=== PATIENT | female | born 1960 | race Caucasian/White ===

== ENCOUNTER 2020-10-26 14:01 | Outpatient (CLI) | payer OTHER, SELFPAY | END 2020-10-26 14:02 | disposition home or self-care (01) | LOC: ANHCOVIDVC 14:01 | PROVIDERS: PCP Family Medicine | DX: Z23 Encounter for immunization (principal) | CPT/HCPCS: 0001A; 91300 ==

== ENCOUNTER 2020-11-16 14:02 | Outpatient (CLI) | payer OTHER, SELFPAY | END 2020-11-16 14:03 | disposition home or self-care (01) | LOC: ANHCOVIDVC 14:02 | PROVIDERS: PCP Family Medicine | DX: Z23 Encounter for immunization (principal) | CPT/HCPCS: 0002A; 91300 ==

== ENCOUNTER 2021-03-10 07:31 | Outpatient (CLI) | payer OTHER, SELFPAY ==
--- NOTE | ~2021-03-10 | MM_ITS ---
EXAMINATION: MM screening liz BI w roya HISTORY: Screening mammogram TECHNIQUE: Craniocaudal and mediolateral oblique 3-D tomosynthesis images were obtained and synthetic 2-D images were generated. CAD analysis was submitted and interpreted. COMPARISON: 07/27/2019, 02/09/2013 bilateral digital screening mammogram examinations BREAST PARENCHYMAL COMPOSITION: There are scattered areas of fibroglandular density. FINDINGS: Scattered bilateral benign calcifications. There is no evidence of suspicious mass, calcifi cation, or architectural distortion to suggest malignancy in either breast. There has been no suspici ous interval change. IMPRESSION: 1. No mammographic evidence of malignancy. 2. Recommend routine screening mammography in one year. BI-RADS Category 1: Negative Reviewed, dictated and finalized at location A.
== END 2021-03-10 07:32 | disposition home or self-care (01) ==
PROVIDERS: PCP Family Medicine; Visit Provider Physician Assistant
DX: Z12.31 Encounter for screening mammogram for malignant neoplasm of breast (principal)
CPT/HCPCS: 77063; 77067

== ENCOUNTER 2022-11-12 13:48 | Emergency (ER) | payer OTHER, SELFPAY ==
[2022-11-12 14:23] VITALS: BP 122/67; PULSE 71; RESP 20; TEMP 35.8; O2SAT 99
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
== END 2022-11-12 15:20 | disposition home or self-care (01) ==
PROVIDERS: Emergency Provider Nurse Practitioner Family; PCP Physician Assistant
DX: M54.50 Low back pain, unspecified (principal); I10 Essential (primary) hypertension; E78.00 Pure hypercholesterolemia, unspecified; M19.90 Unspecified osteoarthritis, unspecified site; Z96.643 Presence of artificial hip joint, bilateral
CPT/HCPCS: 99212; G0463

== ENCOUNTER 2022-11-12 15:37 | Emergency (ER) | payer OTHER, SELFPAY ==
--- NOTE | ~2022-11-12 | US_ITS ---
EXAMINATION: US venous doppler [facility] DATE: 11/12/2022 16:22 INDICATION: Left lower limb pain TECHNIQUE: Elder scale images without and with compression and Doppler images of the left lower extrem ity veins were obtained. COMPARISON: None FINDINGS: The left common femoral vein, profunda femoral vein, femoral vein, popliteal vein, peroneal trunk, posterior tibial veins, and greater saphenous vein are patent. IMPRESSION: 1. Patent left lower extremity veins. No evidence of deep venous thrombosis. Reviewed, dictated and finalized at location F.
[2022-11-12 15:42] VITALS: BP 141/86; PULSE 81; RESP 16; TEMP 36.8; O2SAT 98
[2022-11-12 16:02] LABS: Basophils Absolute Auto 0.1 K/mm3 (0.0-0.1); Basophils Percent Auto 0.9 % (0.2-1.2); Eosinophils Absolute Auto 0.2 K/mm3 (0-0.3); Eosinophils Percent Auto 2.8 % (0-4.4); Hematocrit 38.8 % (37.0-47.0); Hemoglobin 13.2 g/dL (12.0-15.0); Immature Granulocyte Absolute 0.01 K/mm3 (0.00-0.031); Immature Granulocyte Percent A 0.2 % (0-0.5); Lymphocytes Absolute Auto 2.05 K/mm3 (0.9-3.2); Lymphocytes Percent Auto 32.2 % (18.3-44.2); Mean Corpuscular Hemoglobin 29.7 pg (26-34); Mean Corpuscular Volume 87.4 fl (80-100); Mean Platelet Volume 10.2 fl (7.4-10.4); Monocytes Absolute Auto 0.4 K/mm3 (0.1-0.6); Monocytes Percent Auto 6.3 % (2.6-8.5); Neutrophils Absolute Auto 3.7 K/mm3 (1.3-6.7); Neutrophils Percent Auto 57.6 % (45.5-73.1); Platelet Count Result 304 k/mm3 (150-375); Red Blood Count 4.44 M/mm3 (4.2-5.4); Red Cell Distribution Width 12.4 % (11.5-14.5); White Blood Count 6.4 K/mm3 (4.5-10.0)
[2022-11-12 16:13] LABS: Anion Gap 7 mmol/L (8-16); Blood Urea Nitrogen 16 mg/dL (7-17); Calcium 9.1 mg/dL (8.4-10.2); Carbon Dioxide 29 mmol/L (22-30); Chloride 102 mmol/L (98-107); Estimated CRCL calculation 110 ml/min; Estimated Glomerular Filt Rate > 60; Glucose 106 mg/dL (65-110); Potassium 3.9 mmol/L (3.4-5.0); Sodium 138 mmol/L (137-145)
[2022-11-12 16:18] LABS: Prothrombin Time 12.8 Seconds (11.1-14.7)
[2022-11-12 16:19] LABS: Partial Thromboplastin Time 25.1 SECONDS (22.3-36.8)
[2022-11-12 21:18] VITALS: BP 151/82; PULSE 67; RESP 18; O2SAT 99
[2022-11-12 21:31] VITALS: BP 115/88; O2SAT 100
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
== END 2022-11-12 22:30 | disposition home or self-care (01) ==
PROVIDERS: Emergency Medicine; Emergency Provider Physician Assistant; PCP Physician Assistant
DX: M54.42 Lumbago with sciatica, left side (principal); I10 Essential (primary) hypertension; G89.21 Chronic pain due to trauma; Z96.642 Presence of left artificial hip joint; M79.605 Pain in left leg
CPT/HCPCS: 36415; 80048; 85025; 85610; 85730; 93971; 99284

== ENCOUNTER 2023-02-13 14:04 | Emergency (ER) | payer OTHER, SELFPAY ==
--- NOTE | 2023-02-13 14:12 | ED.URI ---
HPI - URI/Sore Throat General Chief Complaint: Upper Respiratory Infection Stated Complaint: + covid home test Time Seen by Provider: 02/13/23 14:12 Source: patient Mode of arrival: ambulatory Limitations: no limitations History of Present Illness HPI Narrative: 62-year-old female with history of high blood pressure, high cholesterol presents today with complaint of fatigue, headache, nasal congestion, body aches for 3 days. Patient reports that she did a home COVID test that was positive. Would like the prescription for Paxil open. Denies chest pain and shortness of breath. Taking Tylenol at home to treat her pain. All systems reviewed and negative except as noted above. Related Data Home Medications Medication Instructions Recorded Confirmed atorvastatin 20 mg tablet 20 mg PO DAILY 11/12/22 02/13/23 diltiazem HCl 240 mg capsule,24 240 mg PO DAILY 02/13/23 02/13/23 hr,extended release (Tiadylt ER) losartan 25 mg tablet 25 mg PO DAILY 02/13/23 02/13/23 meloxicam 15 mg tablet 15 mg PO DAILY 02/13/23 02/13/23 paroxetine HCl 10 mg tablet 10 mg PO DAILY 02/13/23 02/13/23 Allergies Allergy/AdvReac Type Severity Reaction Status Date / Time Sulfa (Sulfonamide AdvReac Severe SWELLING Verified 02/13/23 14:23 Antibiotics) tolmetin AdvReac Severe swelling Verified 02/13/23 14:23 mouth adhesive tape AdvReac Intermediate BLISTERS Verified 02/13/23 14:23 Penicillins AdvReac Intermediate THRUSH Verified 02/13/23 14:23 Review of Systems Review of Systems: CONSTITUTIONAL: Denies fever, chills, or sweats. Reports fatigue. EYES: Denies visual changes, redness, or discharge. ENT: Denies rhinorrhea, congestion, sore throat, or otalgia. CARDIOVASCULAR: Denies chest pain, palpitations, or edema. RESPIRATORY: Denies cough or dyspnea. GASTROINTESTINAL: Denies abdominal pain, nausea, vomiting, or diarrhea. GENITOURINARY: Denies dysuria or hematuria. SKIN: Denies rash or itching. MUSCULOSKELETAL: Denies back pain, joint pain . Reports myalgia. NEUROLOGIC: reports headache. Denies numbness, or weakness. PSYCHIATRIC: Denies anxiety or depression. All other systems reviewed are negative, except as documented in HPI. PMF Past Medical History Medical History Hypertension Surgical History Surgical History Presence of left artificial hip joint (05/30/17) Family History Family History Father Hypertension Family history of chronic obstructive pulmonary disease Family history of diabetes mellitus in first degree relative Mother Hypertension Comments At time of signature, agree with nursing past medical, surgical, social and family history. There is no relevant family history pertinent to the presenting complaint. Exam Narrative: GENERAL: This is a well-nourished, well-developed patient. Patient ill-appearing but in no distress. HEAD: normocephalic, atraumatic. EYES: PERRL. Sclera clear/white. Vision is grossly intact. EARS: External ears normal, auditory canals clear and without drainage, TMs normal without perforation. Hearing grossly intact. NOSE: External nose normal with no obvious nasal discharge, nares without redness, no rhinorrhea. THROAT: Mucous membranes moist, posterior pharynx clear. NECK: Neck supple, non-tender without lymphadenopathy, masses or thyromegaly. CARDIOVASCULAR: Regular rate and rhythm without murmurs, gallops, or rubs. RESPIRATORY: Clear to auscultation. Breath sounds equal bilaterally. No wheezes, rales, or rhonchi. SKIN: warm, Dry, intact with no suspicious lesions or rash, good texture and turgor. NEURO: awake, alert, and oriented to person, place and time. There were no obvious focal neurologic abnormalities. EXTREMITIES: No joint tenderness, effusion, or edema noted. Course Course Le
[2023-02-13 14:14] VITALS: BP 147/81; PULSE 97; RESP 18; TEMP 36.5; O2SAT 97
== END 2023-02-13 14:39 | disposition home or self-care (01) ==
PROVIDERS: Emergency Provider Nurse Practitioner Family; PCP Physician Assistant
DX: U07.1 COVID-19 (principal); I10 Essential (primary) hypertension
CPT/HCPCS: 99213; G0463

== ENCOUNTER 2023-10-23 11:52 | Emergency (ER) | payer OTHER, SELFPAY ==
[2023-10-23 12:15] VITALS: BP 146/84; PULSE 84; RESP 20; TEMP 36.6; O2SAT 100
--- NOTE | 2023-10-23 12:34 | ED.URI ---
HPI - URI/Sore Throat General Chief Complaint: Upper Respiratory Infection Stated Complaint: cough,congestion Source: patient, RN notes reviewed and old records reviewed Mode of arrival: ambulatory Limitations: no limitations History of Present Illness HPI Narrative: 63 year old female presents to [facility] with complaint of sore throat, dry cough, chest tightness, eye irritation, sinus pressure and hoarseness for 12 days. Patient endorses that patient returned from a cruise 5 days ago and that her symptoms became acutely worse over the past 3 days. Versus treating home with cough drops, hot tea, spray, that is from without relief. Patient denies fever or any GI complaints. Patient currently endorsing pain in head and throat 01/25. Patient denies pertinent past medical history, chest pain, shortness of breath,denies tobacco use. patient says the history of allergy to sulfa, tolmetin, adhesive tape, and penicillin. Related Data Home Medications Medication Instructions Recorded Confirmed atorvastatin 20 mg tablet 20 mg PO DAILY 11/12/22 10/23/23 diltiazem HCl 240 mg capsule,24 240 mg PO DAILY 02/13/23 10/23/23 hr,extended release (Tiadylt ER) losartan 25 mg tablet 25 mg PO DAILY 02/13/23 10/23/23 meloxicam 15 mg tablet 15 mg PO DAILY 02/13/23 10/23/23 Allergies Allergy/AdvReac Type Severity Reaction Status Date / Time Sulfa (Sulfonamide AdvReac Severe SWELLING Verified 10/23/23 12:20 Antibiotics) tolmetin AdvReac Severe swelling Verified 10/23/23 12:20 mouth adhesive tape AdvReac Intermediate BLISTERS Verified 10/23/23 12:20 Penicillins AdvReac Intermediate THRUSH Verified 10/23/23 12:20 Review of Systems Review of Systems: All systems reviewed & are unremarkable except as noted in HPI and below Constitutional: Constitutional: Reports difficulty sleeping, Reports fatigue, Denies fever(s) and Reports headache(s) Eyes: Eyes: Reports as per HPI, Denies change in vision and Reports irritation ( bilateral pressure) ENT: Reports system reviewed and no additional complaints, except as documented, Reports as per HPI, Denies dizziness, Denies ear discharge, Reports otalgia ( bilateral), Reports headache(s), Reports hoarseness, Reports sinus pressure and Reports sore throat Cardiovascular: Cardiovascular: Reports no additional cardiovascular complaints, Denies chest pain and Denies dyspnea Respiratory: Respiratory: Reports no additional respiratory complaints, Reports cough ( Dry), Reports pain with cough ( substernal chest tightness. Denies pain or radiation) and Denies dyspnea Gastrointestinal: Gastrointestinal: Denies change in stool character Musculoskeletal: Musculoskeletal: Reports no additional musculoskeletal complaints Neurologic: Reports system reviewed and no additional complaints, except as documented Psychiatric: Psychiatric: Reports no additional psychiatric complaints PMFSH Past Medical History Medical History Hypertension Surgical History Surgical History Presence of left artificial hip joint (05/30/17) Family History Family History Father Hypertension Family history of chronic obstructive pulmonary disease Family history of diabetes mellitus in first degree relative Mother Hypertension Comments At the time of my signature, I reviewed and agree with the nursing past medical, surgical, social, and family history. There is no relevant family history pertinent to the patient complaint. Exam Const: General: cooperative, no acute distress, alert, ill appearing, tired appearing, uncomfortable and well nourished; No in distress Nutritional Appearance: well nourished Orientation/consciousness: patient oriented x3 Limitations: no limitations HENMT: Head: normal to inspection Ears: external ears no
== END 2023-10-23 13:04 | disposition home or self-care (01) ==
PROVIDERS: Emergency Provider Nurse Practitioner Family
DX: J06.9 Acute upper respiratory infection, unspecified (principal); J40 Bronchitis, not specified as acute or chronic; J32.9 Chronic sinusitis, unspecified; Z20.822 Contact with and (suspected) exposure to COVID-19; I10 Essential (primary) hypertension
CPT/HCPCS: 87081; 87426; 87804; 87880; 99213; G0463

== ENCOUNTER 2023-10-31 11:05 | Outpatient (CLI) | payer OTHER, SELFPAY ==
--- NOTE | ~2023-10-31 | XR_ITS ---
Right Knee Technique: AP, lateral, and sunrise views were obtained. Clinical History: Pain Findings: No fracture or dislocation is seen. Osseous alignment is anatomic. There is moderate patell ar spurring. There is mild spurring at the intercondylar notch and joint lines.. Soft tissues are unr emarkable. No joint effusion is seen. Impression: Tricompartmental degenerative spurring, as above. Reviewed, dictated and finalized at location M. Impression: Tricompartmental degenerative spurring, as above.
== END 2023-10-31 11:06 | disposition home or self-care (01) ==
PROVIDERS: Visit Provider Orthopaedic Surgery
DX: M25.761 Osteophyte, right knee (principal)
CPT/HCPCS: 73564

== ENCOUNTER 2024-02-06 10:20 | Outpatient (CLI) | payer OTHER, SELFPAY ==
--- NOTE | ~2024-02-06 | MR_ITS ---
EXAMINATION: MR knee RT wo con DATE: 02/06/2024 11:13 INDICATION: Internal derangement of the right knee TECHNIQUE: Magnetic resonance imaging (MRI) of the right knee was performed without intravenous contr ast. Sequences included coronal PD-weighted FSE, coronal PD-weighted FS FSE, sagittal T2-weighted FS E, sagittal PD-weighted FS FSE and axial PD weighted fat saturated FSE. COMPARISON: None. FINDINGS: Medial compartment: Medial meniscus is normal. Mild partial-thickness cartilage loss with smooth chondral surface along t he posterior margin of the medial tibial plateau. Articular cartilage along the weightbearing medial femoral condyle appears normal. Small marginal osteophytes are present. Lateral compartment: Complex tear of the anterior horn of the lateral meniscus. There is deep chondral ulceration with mil d underlying subarticular edema-like signal change at the central to lateral aspect of the lateral ti bial plateau with additional partial-thickness chondral fissuring at the posterior aspect of the late ral tibial plateau. Additional deep chondral ulceration along the anterior to central weightbearing l ateral femoral condyle. At the medial half of the junction of the anterior to central weightbearing l ateral femoral condyle there is a small region of mildly depressed cortex with irregular cortical con tour and underlying decreased signal in the immediately subarticular bone with some surrounding edema -like signal change. Patellofemoral compartment: Extensive deep chondral ulceration with suggestion of cortical remodeling at the lateral patellar fac et and juxtaposed lateral trochlea. Less severe partial thickness cartilage loss with and partial-thi ckness fissuring at the medial patellar facet and medial trochlea. Tiny central subchondral osteophyt e at the central aspect of the lateral trochlea. Ligaments and tendons: Anterior and posterior cruciate ligaments are normal. The medial collateral ligament and fibular mylene ateral ligament complex are normal. The extensor mechanism is normal. The visualized medial and later al hamstring tendons as well as the iliotibial band are normal. Fluid: Moderate-sized right knee joint effusion with mild synovitis at the suprapatellar pouch and along the posterior margin of Hoffa's fat pad. A couple loose loose osteochondral bodies in the posterior rece ss along the lateral margin of the posterior weightbearing lateral femoral condyle, the larger measur ing 12 x 8 x 6 mm and the smaller measuring 8 x 7 x 5 mm. Osseous/other: There is mild posterior subluxation of the lateral tibial plateau relative to the lateral femoral con dyle. Aside from the small region of depressed cortex along the lateral femoral condyle there are no fractures. No pathologic marrow replacing process. IMPRESSION: 1. Complex tear of the anterior horn of the lateral meniscus. 2. 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 3. Both of mild edema-like signal change surrounding a small region of depressed cortex at the medial side of the junction of the anterior to central weightbearing lateral femoral condyle which could re present either a chronic stress versus impaction fracture or chronic collapsed osteochondral lesion. 4. Likely reactive moderate sized right knee joint effusion. Reviewed, dictated and finalized at location A. IMPRESSION: 1. Complex tear of the anterior horn of the lateral meniscus. 2. Tricompartmental osteoarthritis, severe at the lateral aspect of the patello femoral compartment and moderate to severe with high-grade chondromalacia at th e lateral compartment and mild at the me
== END 2024-02-06 10:21 ==
PROVIDERS: Visit Provider Physician Assistant Surgical
DX: M17.11 Unilateral primary osteoarthritis, right knee (principal); S83.271A Complex tear of lateral meniscus, current injury, right knee, initial encounter; X58.XXXA Exposure to other specified factors, initial encounter
CPT/HCPCS: 73721

== ENCOUNTER 2024-02-26 16:35 | Outpatient (CLI) | payer OTHER, SELFPAY ==
[2024-02-26 17:05] LABS: Hemoglobin 13.8 g/dL (12.0-15.0)
[2024-02-26 17:13] LABS: Urine Cotinine NEGATIVE
[2024-02-26 17:17] LABS: Albumin Level 4.5 g/dL (3.5-5.1); Estimated Glomerular Filt Rate > 60; Glucose 89 mg/dL (65-110)
[2024-02-26 17:43] LABS: Hemoglobin A1C 5.1 % (<5.7)
== END 2024-02-26 16:36 | disposition home or self-care (01) ==
LOC: ANHLAB 16:41
PROVIDERS: Visit Provider Orthopaedic Surgery
DX: M23.91 Unspecified internal derangement of right knee (principal)
CPT/HCPCS: 80307; 82040; 82565; 82947; 83036; 85014; 85018

== ENCOUNTER 2024-02-27 15:52 | Outpatient (CLI) | payer OTHER, SELFPAY ==
--- NOTE | 2024-02-27 15:56 | ECG_ITS ---
Test Date: 2024-02-27 16:10:49 Measurements Intervals [place] Rate: 91 P: 52 GA: 159 QRS: 3 QRSD: 77 T: 7 QT: 380 QTc: 468 Interpretive Statements SINUS RHYTHM POSSIBLE LEFT ATRIAL ENLARGEMENT LOW QRS VOLTAGE IN PRECORDIAL LEADS BORDERLINE ST-T WAVE ABNORMALITY- INFERIOR LEADS BASELINE ARTIFACT- III, AVF BORDERLINE ECG No previous ECG available for comparison Electronically Signed On 02-27-2024 16:18:57 CDT by Demetrio Lopez D.O.
== END 2024-02-27 15:53 | disposition home or self-care (01) ==
PROVIDERS: Visit Provider Orthopaedic Surgery
DX: Z01.818 Encounter for other preprocedural examination (principal); I10 Essential (primary) hypertension
CPT/HCPCS: 93005

== ENCOUNTER 2024-03-26 11:56 | Outpatient (CLI) | payer OTHER, SELFPAY ==
[2024-03-26 13:36] LABS: Basophils Absolute Auto 0.1 K/mm3 (0.0-0.1); Basophils Percent Auto 1.4 % (0.2-1.2); Eosinophils Absolute Auto 0.2 K/mm3 (0-0.3); Eosinophils Percent Auto 3.2 % (0-4.4); Hematocrit 38.4 % (37.0-47.0); Immature Granulocyte Absolute 0.02 K/mm3 (0.00-0.031); Immature Granulocyte Percent A 0.3 % (0-0.5); Lymphocytes Percent Auto 27.6 % (18.3-44.2); Mean Corpuscular HGB Conc 33.9 g/dl (32-36); Mean Corpuscular Volume 88.5 fl (80-100); Mean Platelet Volume 10.2 fl (7.4-10.4); Monocytes Absolute Auto 0.4 K/mm3 (0.1-0.6); Monocytes Percent Auto 5.5 % (2.6-8.5); Platelet Count Result 283 k/mm3 (150-375); Red Blood Count 4.34 M/mm3 (4.2-5.4); Red Cell Distribution Width 12.1 % (11.5-14.5); White Blood Count 6.5 K/mm3 (4.5-10.0)
[2024-03-26 14:42] LABS: MRSA (PCR) NOT DETECTED (NOT DETECTE)
== END 2024-03-26 11:57 | disposition home or self-care (01) ==
PROVIDERS: PCP Nurse Practitioner Family; Visit Provider Orthopaedic Surgery
DX: Z01.818 Encounter for other preprocedural examination (principal); M17.11 Unilateral primary osteoarthritis, right knee
CPT/HCPCS: 36415; 85025; 86850; 86900; 86901; 87641

== ENCOUNTER 2024-04-06 01:23 | Day surgery (SDC) | payer OTHER, SELFPAY ==
--- NOTE | 2024-03-26 12:06 | PC.NURSE ---
Report to the Outpatient Waiting Room, entrance under the green pavilion located off [facility], at time ___6:00AM____ on date __04/06/24 . Planned Procedure Time: __7:30AM . Time changes happen often and if your time is changed the preop area will call you the afternoon before. - You and your visitor will be asked to self-screen and do not enter if you have any COVID symptoms. - A mask is optional within the hospital at this time. Patients may have clear liquids (water, carbonated beverages, clear teas, apple juice) until 3 hours prior to surgery with a maximum of 20 ounces. - No food from midnight until time of surgery. Take the following medications with a SIP of water the morning of surgery: ___DILTIAZEM DO NOT STOP ANY OF YOUR OTHER PRESCRIPTION MEDICATIONS PRIOR TO SURGERY ?EXCEPT THE FOLLOWING Medications to discontinue per physician HOLD MELOXICAM 7 DAYS PRE-OP PER DR CR Date to take last dose 03/29/24 Please no make-up, nail monegasque, hairspray, perfume, deodorant, or body powder the day of surgery. No jewelry (including any body piercings) or valuables the day of surgery, leave them at home. Please take a shower or bath the night before, or the morning of, surgery with an antibacterial soap. Wear comfortable, loose fitting clothing. - Jewelry must be removed prior to entering the operating room. Rings and piercings that are not removed may be cut off. - The hospital will not accept responsibility for valuables. - Please leave all valuables, including medications, at home the day of surgery. If you are going home after surgery, a licensed team otr truck driver must drive you home. - NO public transportation without another adult if you receive anesthesia. - We recommend that an adult stay with you for 24 hours following discharge. - We also recommend that you do not drive, make important decision, drink alcoholic beverages, or take any drugs that were not prescribed by your health care provider for at least 24 hours after your discharge time. Follow any additional instructions given to you from your surgeon. If you or anyone in your household have experienced Covid symptoms in the past week, please notify your surgeon or the nurse liaison at the phone number below for possible testing. Telephone instructions given to ___PATIENT and asked if any additional questions and then verbalized understanding. Patient advised to call surgeon office or pre surgery nurse liaison [phone] if any additional questions.
[2024-03-26 12:13] VITALS: BMI 34.7
[2024-03-26 12:26] VITALS: BP 151/76; PULSE 82; RESP 16; TEMP 36.9; O2SAT 100
[2024-04-06] VITALS (12 sets, daily range): BP systolic 130–147; BP diastolic 68–84; PULSE 62–100; RESP 12–18; TEMP 36.3–36.6; O2SAT 94–100
--- NOTE | ~2024-04-06 | XR_ITS ---
[id number] Ordering provider: Elian King MD History: . POST-OP, RIGHT KNEE TKA . Comparison: None. FINDINGS: BONES: No acute fracture or dislocation. JOINT SPACES: Total knee arthroplasty. SOFT TISSUES: Postoperative changes anteriorly. IMPRESSION: No acute osseous abnormality right knee. Total knee arthroplasty. Reviewed, dictated and finalized at location A.
[2024-04-06] MEDS: ACETAMINOPHEN 500 MG TABLET 1000 MG PO (07:00)
[2024-04-06] MEDS: TRANEXAMIC ACID 1,000MG/ISO100 1,000 MG/100 ML BAG 200 MG IVPB (07:00)
[2024-04-06] MEDS: LACTATED RINGERS 1,000 ML 30 ML IV CONT ×2 (07:00→10:21)
--- NOTE | 2024-04-06 07:04 | WPDANESEPPF ---
Anes - Initial Pre Proc Eval Procedure: Operation Date: 04/06/24 07:30 Proposed Procedures p Right Total Knee Arthroplasty - Elian King MD Date/Time: 04/06/24 07:04 Surgeon: Elian King MD Pre Op Diagnosis: primary oa right knee Patient Data Age: 63 Gender: F Height: 1.71 m Weight: 101.2 kg Last Vital Signs Temp 98.5 F 03/26/24 12:26 Pulse 82 03/26/24 12:26 Resp 16 03/26/24 12:26 BP 151/76 H 03/26/24 12:26 Pulse Ox 100 03/26/24 12:26 O2 Del Method Room Air 03/26/24 12:26 Allergies Allergy/AdvReac Type Severity Reaction Status Date / Time Sulfa (Sulfonamide Allergy Severe SWELLING Verified 03/26/24 14:27 Antibiotics) adhesive tape AdvReac Intermediate BLISTERS Verified 03/26/24 14:27 Penicillins AdvReac Intermediate THRUSH Verified 03/26/24 14:27 Home Medications Medication Instructions Recorded Confirmed Type diltiazem HCl 240 mg capsule,24 240 mg PO DAILY 02/13/23 03/26/24 History hr,extended release (Tiadylt ER) losartan 25 mg tablet 25 mg PO DAILY 02/13/23 03/26/24 History meloxicam 15 mg tablet 15 mg PO DAILY PRN Pain 02/13/23 03/26/24 History calcium carbonate (Tums) 300 mg PO BID PRN Indigestion 03/26/24 03/26/24 History lidocaine 5 % topical patch 1 patch topical DAILY PRN Pain 03/26/24 03/26/24 History Patient hx anesthesia problems: none Family hx anesthesia problems: none Results Review: All pre-operative results and documents have been reviewed as part of the pre-operative evaluation. [facility] Past Medical History Medical History GERD (gastroesophageal reflux disease) History of bruising easily Hypertension Osteoporosis Surgical History Surgical History History of appendectomy History of oophorectomy History of shoulder surgery Rt Shoulder - Pin & Anchors History of tooth extraction History of total right hip arthroplasty Presence of left artificial hip joint (05/30/17) Family History Family History Father Hypertension Family history of chronic obstructive pulmonary disease Family history of diabetes mellitus in first degree relative Skin cancer Mother Hypertension Cancer Brain tumor Social History Social History Smoking status: Never smoker Alcohol intake: current Do You Feel Safe in your Home?: Yes Lack of Transportation: No Lack of Food: Never True Current Housing: I Have Housing Concerned About Future Housing: No Difficulty Paying Gas/Electric Bills: No Difficulty Paying for Meds: No Currently Unemployed: No Education: Bachelor's Degree Difficulty w/ Childcare or Family Care: No Living arrangements: with family Additional living arrangements comments: [place] Spiritual care concerns: No Anes - Eval Final PreProcedure Day of Procedure 04/06/24 07:04 Patient weight: obese Heart: regular rate and rhythm Lungs: clear to auscultation Airway: Mallampati scale class II and special considerations (Missing teeth on the post lower aspect. ) Neurological: alert and oriented Last oral intake: >/= 8 hours ASA classification: II Emergent: no Anesthetic plan: proceed Anesthesia type and monitoring: general and standard monitoring Results Review: All pre-operative results and documents have been reviewed as part of the pre-operative evaluation. HTN. EKG NSR. Informed Consent: The patient's anesthetic plan and its attendant risks and benefits were discussed with the patient/family/POA. Questions were solicited and answers provided to the satisfaction of the patient/family/POA.
--- NOTE | 2024-04-06 07:13 | WPDHPUPDATE1 ---
History and Physical Update Update Date/Time: 04/06/24 07:13 History and Physical has been reviewed, including an updated exam of the patient. There are NO changes in the patient's condition. Risks, benefits, and alternatives have been discussed and questions answered. Patient agrees to proceed with procedure.
[2024-04-06] MEDS: ceFAZolin 2 GM/D5W 50 ML 2 GM/50 ML BAG IVPB ×3 (07:30→23:45)
--- NOTE | 2024-04-06 07:30 | WPDANESPNB ---
Anes - Peripheral Nerve Block Date/Time: 04/06/24 07:30 I have discussed with the patient/family/POA the placement of a peripheral nerve block for post-operative pain management, including associated risks, benefits, complications, and side effects. Alternative methods of post-operative analgesia were detailed. Questions were solicited and answers provided to the satisfaction of the patient/family/POA. Time-Out: A pre-procedural Time-Out was completed immediately before starting the procedure and confirmed: Patient Identification, Site, Procedure, Patient Position and the Availability of Requisite Equipment. Clinical Indications: Acute post-operative pain management requested by the operative surgeon. Nerve Block Insertion Note Anes-nerve block: adductor canal right Patient position: supine Skin prep: chlorhexidine Needle: 22 gauge, stimulating, insulated echogenic needle. Needle length: 80 mm Technique: ultrasound Injectate: other (Bupiv 0.5%, 15 mls. ) Observations: tolerated well Procedure start time:: 721 Procedure end time:: 72
[2024-04-06] MEDS: SODIUM CHLORIDE 0.9% IV 37.7 ML, MORPHINE SULFATE INJ (*CRX) 2 MG, ROPivacaine HCL 1% 2... INFILTRATE (08:08)
[2024-04-06] MEDS: GENTAMICIN BONE CEMENT REFOBACIN 1 EACH TOPICAL (10:03)
[2024-04-06] MEDS: fentaNYL CITRATE INJ (*CRX) 100 MCG/2 ML VIAL 25 MCG IV PUSH ×6 (10:29→11:16)
--- NOTE | 2024-04-06 11:40 | ADMGEN ---
This patient, Angelique Umanzor, was admitted to 3 [facility] [place] Surg Room 319-01. Patient/family oriented to hospital policies and general routines including ID bracelet, bed and alarms, visiting hours, pain management, procedures, bathroom and other care routines, personal items, smoking policy, room service/diet, and visiting hours. Information on how to activate the Rapid Response Team has been discussed. Patient/Family are encouraged to report perceived risks to care and to ask questions if they do not understand what they are told or what they should do.
[2024-04-06] MEDS: SODIUM CHLORIDE 0.9% IV 1,000 ML 125 ML IV CONT (12:16)
[2024-04-06] MEDS: ACETAMINOPHEN 325 MG TABLET 650 MG PO ×2 (12:16→18:49)
[2024-04-06] MEDS: traMADol HCL (*CRX) 50 MG TABLET PO ×2 (12:20→21:24)
[2024-04-06] MEDS: oxyCODONE/ACETAMINOPHEN (*CRX) 10-325 MG TABLET 1 TAB PO (13:19)
--- NOTE | 2024-04-06 15:33 | W.PM.PROC2 ---
Procedure Note - Detailed Date of Procedure 04/06/24 Pre-op Diagnosis Degenerative arthritis, right knee Post-op Diagnosis Same Procedure Performed Calipered, kinematically aligned total knee replacement right knee. Surgeon Elian King MD Health Director Stacy Shields PA-C Anesthesia General Indications Severe degenerative arthritis of the knee. Failed conservative treatment. Physician logging assistant, Stacy Shields PA-C, required for surgery; including patient positioning, draping, tissue retraction, maintaining instrument position, cement removal, wound closure, and dressing placement. Findings According to the calipered kinematic alignment principles, the knee was balanced by the following verification checks incorporating 6 caliper measurements, using an insert goniometer to select the insert thickness, and adjusting the tibial resection following the kinematic alignment algorithm (see figure 160.10 published in [employer] chapter on kinematic alignment total knee arthroplasty.) The steps verified the femoral and tibial components were kinematically aligned coincident to the patient's pre arthritic joint lines, which closely restored the table mountain tibial compartment forces and ligament laxities without ligament release. The record of verification checks were documented and scanned into the chart. Distal Femoral Resection: Distal Lateral 6 mm(cartilage worn), Distal Medial 8 mm Target thickness of 8mm Unworn, 6mm Worn (No Cartilage). Posterior Femoral Resection: Posterior Lateral 5 mm(cartilage worn), Posterior Medial 7 mm. Target thickness of 7mm Unworn, 5mm Worn (No Cartilage). Tibia varus preoperative 3 degrees; postoperative 3 degrees. Tibia slope preoperative 6 degrees; postoperative 7 degrees. Synovitis and effusion were notable. No signs of infection. No contractures. No recuts or ligament releases required. Description of Procedure General anesthesia was administered. A well-padded tourniquet was placed high on the thigh. The limb was prepped and draped in the usual sterile fashion. The limb was exsanguinated and the tourniquet inflated to 300 mmHg. A longitudinal incision was created over the midline of the knee. Sharp dissection was taken through subcutaneous tissues. Electrocautery was used for hemostasis. A trivector approach to the knee joint was performed. The ACL, anterior horns of the menisci, and fat pad were excised, and a subperiosteal dissection was carried along the posterior medial border of the tibia. The thickness of the [place] mountain patella was measured with a caliper. Resection of the surface was performed. The best fitting anatomic patella button was selected. The fixation holes were drilled. When the patella and patella buttons combined thickness was thicker than the [place] mountain patella, the patella was recut. Starting midway between the top of the notch in the anterior femoral cortex, I drilled a 9 mm diameter hole parallel to the anterior cortex to minimize flexion of the femoral component and promote patella tracking. I verified the existence of a 5-10 mm bone bridge between the posterior aspect of the hole and the anterior limit of the intercondylar notch. An intraosseous positioning master was inserted 10 cm into the femur perpendicular to the distal joint line and parallel to the anterior cortex. I used a distal femoral referencing guide that compensated 2 mm when the cartilage was worn on the distal medial femoral condyle, and 2 mm when the cartilage was worn on the distal lateral femoral condyle. The basis for setting the distal and posterior femoral resection guide is knowing that the varus and valgus grade II to IV Kellegren-Nando osteoarthritic knees have negligible bone wear at 0? and 90? and that the mean full-thickness cartilage wear approximates 2 mm. I measured the thickness of distal femoral resections with a caliper to +/- 0.5 mm. The thickness of each resection was adjusted to match the thickn
--- NOTE | 2024-04-06 15:56 | PCPTNOTE ---
On 04/06/24, the student, [Arely Giron], provided care and completed [facility] documentation on this patient. I have reviewed the student's documentation and agree with the findings.
[2024-04-06] MEDS: SENNA/DOCUSATE SODIUM TABLET 2 TAB PO (16:57)
[2024-04-06] MEDS: MELOXICAM 7.5 MG TABLET PO (16:57)
[2024-04-06] MEDS: predniSONE 5 MG TABLET PO (16:57)
[2024-04-06] MEDS: ASPIRIN 81 MG ENTERIC TABLET PO (16:57)
[2024-04-06] MEDS: FAMOTIDINE 20 MG TABLET PO (21:24)
[2024-04-07] MEDS: ACETAMINOPHEN 325 MG TABLET 650 MG PO ×2 (00:14→06:35)
[2024-04-07 01:15] VITALS: BP 131/74; PULSE 84; RESP 16; TEMP 36.4; O2SAT 100
[2024-04-07] MEDS: traMADol HCL (*CRX) 50 MG TABLET PO ×2 (01:57→09:52)
[2024-04-07 05:15] VITALS: BP 121/95; PULSE 82; RESP 20; TEMP 35.8; O2SAT 99
[2024-04-07 06:35] LABS: Basophils Percent Auto 0.1 % (0.2-1.2); Hematocrit 34.8 % (37.0-47.0); Hemoglobin 11.7 g/dL (12.0-15.0); Immature Granulocyte Absolute 0.05 K/mm3 (0.00-0.031); Immature Granulocyte Percent A 0.3 % (0-0.5); Lymphocytes Absolute Auto 0.77 K/mm3 (0.9-3.2); Lymphocytes Percent Auto 5.2 % (18.3-44.2); Mean Corpuscular HGB Conc 33.6 g/dl (32-36); Mean Corpuscular Hemoglobin 29.8 pg (26-34); Mean Corpuscular Volume 88.5 fl (80-100); Mean Platelet Volume 10.7 fl (7.4-10.4); Monocytes Absolute Auto 0.8 K/mm3 (0.1-0.6); Monocytes Percent Auto 5.6 % (2.6-8.5); Neutrophils Percent Auto 88.8 % (45.5-73.1); Platelet Count Result 265 k/mm3 (150-375); Red Blood Count 3.93 M/mm3 (4.2-5.4); White Blood Count 14.7 K/mm3 (4.5-10.0)
[2024-04-07] MEDS: ceFAZolin 2 GM/D5W 50 ML 2 GM/50 ML BAG IVPB (06:35)
[2024-04-07 06:47] LABS: Anion Gap 9 mmol/L (4-12); Blood Urea Nitrogen 11 mg/dL (7-17); Calcium 8.7 mg/dL (8.4-10.2); Carbon Dioxide 28 mmol/L (22-30); Chloride 101 mmol/L (98-107); Estimated CRCL calculation 101 ml/min; Estimated Glomerular Filt Rate > 60; Glucose 129 mg/dL (65-110); Potassium 3.6 mmol/L (3.4-5.0); Sodium 138 mmol/L (137-145)
--- NOTE | 2024-04-07 08:31 | WPDANESPN ---
Anes - Prog Note Post-Op Date/Time: 04/07/24 08:31 Cardiovascular status: normal Respiratory status: normal Airway patency: baseline Mental status: baseline Post-Op hydration status: normal Vital Signs: Last Vital Signs Temp 35.8 C L 04/07/24 05:15 Pulse 82 04/07/24 05:15 Resp 20 04/07/24 05:15 BP 121/95 H 04/07/24 05:15 Pulse Ox 99 04/07/24 05:15 O2 Del Method Room Air 04/06/24 20:00 O2 Flow Rate 2 04/06/24 12:00 Pain Score (VAS): 11/25 I/O: Intake & Output 04/06/24 04/07/24 04/07/24 23:59 07:59 15:59 Intake Total 170 550 Balance 170 550 Laboratory Tests 04/07/24 06:02 04/07/24 06:02 04/07/24 06:02 WBC 14.7 H RBC 3.93 L Hgb 11.7 L Hct 34.8 L MCV 88.5 MCH 29.8 MCHC 33.6 RDW 12.0 Plt Count 265 MPV 10.7 H Immature Gran % (Auto) 0.3 Neut % (Auto) 88.8 H Lymph % (Auto) 5.2 L [place] % (Auto) 5.6 Eos % (Auto) 0.0 Baso % (Auto) 0.1 L Lymph # (Auto) 0.77 L [place] # (Auto) 0.8 H Eos # (Auto) 0.0 Baso # (Auto) 0.0 Abs Immat Gran (auto) 0.05 H Absolute Neuts (auto) 13.0 H Absolute Nucleated RBC 0.000 Nucleated RBC % 0.0 Sodium 138 Potassium 3.6 Chloride 101 Carbon Dioxide 28 Anion Gap 9 BUN 11 D Creatinine 0.60 L Estim Creat Clear Calc 101 Estimated GFR > 60 Glucose 129 H Calcium 8.7 Post-procedural complaints: none Patient Feedback: Patient satisfied with anesthetic care.
--- NOTE | 2024-04-07 08:41 | PM.DS ---
DS: Admitting Diagnosis Discharge Date 04/07/23 Admitting Diagnosis Knee arthritis. DS: Discharge Diagnosis Discharge Diagnosis (1) Status post total right knee replacement: Code(s): Z96.651 - Presence of right artificial knee joint Status: Acute Assessment and Plan: Postop day 1: Right total knee arthroplasty. Patient tolerated procedure well. No complications. Pain manageable with pain medication. No numbness or tingling. We had a lengthy discussion regarding postoperative wound care, limitations, expectations, and exercises. Patient shows good understanding. She has had initial physical therapy and is tolerating it well. DVT prophylaxis: 81 mg baby aspirin b.i.d. for 14 days. Pain medication: Percocet. Meloxicam. Prednisone. Patient has followup appointment with Dr. King in 3 weeks. DS: Summary Hospital Course Reason for hospitalization: Total knee arthroplasty Hospital Course: Patient tolerated procedure well. Has had initial PT/OT. Status at Discharge Functional status at discharge: uses cane/walker Overall status at discharge: patient is progressing back to baseline Time Spent with Patient Time attestation: Total time spent providing and/or coordinating discharge services: Exam Narrative: 63-year-old overweight female. Resting comfortably in bed. Alert and oriented x3. No acute distress. Wearing compression socks bilaterally. Dressing intact with small area of dried bloody drainage on Mepilex. Mild swelling. Thigh pain at location of tourniquet. Mild ecchymosis. No erythema. Small hematoma subcutaneously. Range of motion limited due to pain. Calf nontender. Neurologic status intact. No varicosities. Distal pulses palpable. Quad fires. DS: Data Data Completed and Pending Labs on day of discharge: Labs from last 24 hours 04/07/24 06:02 WBC 14.7 H RBC 3.93 L Hgb 11.7 L Hct 34.8 L MCV 88.5 MCH 29.8 MCHC 33.6 RDW 12.0 Plt Count 265 MPV 10.7 H Immature Gran % (Auto) 0.3 Neut % (Auto) 88.8 H Lymph % (Auto) 5.2 L [place] % (Auto) 5.6 Eos % (Auto) 0.0 Baso % (Auto) 0.1 L Lymph # (Auto) 0.77 L [place] # (Auto) 0.8 H Eos # (Auto) 0.0 Baso # (Auto) 0.0 Abs Immat Gran (auto) 0.05 H Absolute Neuts (auto) 13.0 H Absolute Nucleated RBC 0.000 Nucleated RBC % 0.0 Sodium 138 Potassium 3.6 Chloride 101 Carbon Dioxide 28 Anion Gap 9 BUN 11 D Creatinine 0.60 L Estim Creat Clear Calc 101 Estimated GFR > 60 Glucose 129 H Calcium 8.7 Discharge Plan Discharge Patient Disposition: Home, Self-Care Discharge Instructions: See green instruction sheets Stand Alone Forms: General Discharge Instructions Follow-up/Referrals: Stacy Shields PA [Physician Imaging Account Manager] - Discharge Medications: New aspirin 81 mg tablet,delayed release (DR/EC) 81 mg PO BID 14 Days Qty: 28 0RF meloxicam 15 mg tablet 15 mg PO DAILY Qty: 30 0RF Rx Instructions: Cut in half. Take 1/2 in morning and 1/2 at night. Take with food. Stop if stomach upset. prednisone 5 mg tablet 5 mg PO DAILY 21 Days Qty: 21 0RF oxycodone-acetaminophen 5-325 mg tablet 1 - 2 tablet PO Q4-6H MDD 6 PRN (Reason: pain) Qty: 30 0RF Continued meloxicam 15 mg tablet 15 mg PO DAILY PRN (Reason: Pain) losartan 25 mg tablet 25 mg PO DAILY Patient Comments: QAM diltiazem HCl [Tiadylt ER] 240 mg capsule,extended release 24 hr 240 mg PO DAILY Patient Comments: QAM lidocaine 5 % adhesive patch,medicated 1 patch topical DAILY PRN (Reason: Pain) Tums 300 mg (750 mg) Tablet,Chewable 300 mg PO BID PRN (Reason: Indigestion)
[2024-04-07 09:15] VITALS: BP 142/73; PULSE 65; RESP 14; TEMP 36.2; O2SAT 97
[2024-04-07] MEDS: FAMOTIDINE 20 MG TABLET PO (09:43)
[2024-04-07] MEDS: SENNA/DOCUSATE SODIUM TABLET 2 TAB PO (09:43)
[2024-04-07] MEDS: MELOXICAM 7.5 MG TABLET PO (09:43)
[2024-04-07] MEDS: ASPIRIN 81 MG ENTERIC TABLET PO (09:43)
[2024-04-07] MEDS: dilTIAZem HCL CD 240 MG CAP.24HR PO (09:43)
[2024-04-07] MEDS: LOSARTAN POTASSIUM 25 MG TABLET PO (09:43)
[2024-04-07 10:30] VITALS: O2SAT 96
== END 2024-04-07 12:58 | disposition home or self-care (01) ==
LOC: ANHSURGERY 06:05 → ANH3MEDSUR 12:09
PROVIDERS: Physician Assistant Surgical; PCP Nurse Practitioner Family; Visit Provider Orthopaedic Surgery
PROC: (CPT 27447; principal; 2024-04-06 07:30)
DX: M17.11 Unilateral primary osteoarthritis, right knee (principal); M25.761 Osteophyte, right knee; M23.41 Loose body in knee, right knee; I10 Essential (primary) hypertension; K21.9 Gastro-esophageal reflux disease without esophagitis; M81.0 Age-related osteoporosis without current pathological fracture; E66.9 Obesity, unspecified; Z68.34 Body mass index [BMI] 34.0-34.9, adult; G89.18 Other acute postprocedural pain; Z98.890 Other specified postprocedural states; Z84.0 Family history of diseases of the skin and subcutaneous tissue
CPT/HCPCS: 64447; 27447; 36415; 73560; 80048; 85025; 86850; 86900; 86901; 87641; 97110; 97116; 97161; 97165; 97535; C1776; A9270; C1713; J0171; J0690; J1100; J1170; J1885; J2250; J2270; J2405; J2704; J2795; J3010; J7030; J7120; J7512

== ENCOUNTER 2024-05-19 18:16 | Emergency (ER) | payer OTHER, SELFPAY ==
--- NOTE | ~2024-05-19 | XR_ITS ---
EXAMINATION: XR ribs RT 2V w CXR 2V DATE: 05/19/2024 19:15 INDICATION: Right rib pain. Fall. TECHNIQUE: Frontal and lateral views of the chest and 2 views on 4 radiographs of the right ribs were obtained. COMPARISON: Chest 2 views 06/02/2017 FINDINGS: CHEST TWO VIEWS: There is no pneumonia, pleural effusion, or pneumothorax. The heart size is normal. Surgical clips in the right upper quadrant are likely from cholecystectomy. RIGHT RIBS: There is no rib fracture. IMPRESSION: 1. No rib fracture. Reviewed, dictated and finalized at location A. IMPRESSION: 1. No rib fracture.
[2024-05-19 18:33] VITALS: BP 132/61; PULSE 76; RESP 20; TEMP 36.3; O2SAT 100
--- NOTE | 2024-05-19 18:51 | ED.FALL ---
HPI - Fall General Chief Complaint: Fall Stated Complaint: fall Time Seen by Provider: 05/19/24 18:42 Source: patient, RN notes reviewed and old records reviewed Mode of arrival: ambulatory Limitations: no limitations History of Present Illness HPI Narrative: 63-year-old female to [facility] with complaint of right anterior rib pain status post fall just prior to arrival. Patient states that she had a right total knee replacement on April 06. Patient states that she was stepping back into her office and tripped while going through the doorway. Patient states she was so concerned about protecting that her knee that she fell onto her right ribs. Patient reports the pain is worse with inspiration; currently rating pain 6/10. Patient has not taken anything to treat symptoms because she came straight here after incident. Patient reports history of bilateral hip replacement and surgery to right shoulder. Patient denies striking head upon fall, shortness of breath, prior injury. Patient resting uncomfortably in exam room, guarding right anterior ribs with hand. Respirations even and nonlabored. Patient able to speak in complete sentences without difficulty. Related Data Home Medications Medication Instructions Recorded Confirmed diltiazem HCl 240 mg capsule,24 240 mg PO DAILY 02/13/23 05/19/24 hr,extended release (Tiadylt ER) losartan 25 mg tablet 25 mg PO DAILY 02/13/23 05/19/24 calcium carbonate (Tums) 300 mg PO BID Indigestion 03/26/24 05/19/24 lidocaine 5 % topical patch 1 patch topical DAILY Pain 03/26/24 05/19/24 oxycodone-acetaminophen 5 mg-325 1 - 2 tablet PO Q4-6H pain 05/19/24 05/19/24 mg tablet Allergies Allergy/AdvReac Type Severity Reaction Status Date / Time Sulfa (Sulfonamide Allergy Severe SWELLING Verified 05/19/24 18:40 Antibiotics) adhesive tape Allergy Intermediate BLISTERS Verified 05/19/24 18:40 Penicillins AdvReac Intermediate THRUSH Verified 05/19/24 18:40 Review of Systems Review of Systems: All systems reviewed & are unremarkable except as noted in HPI and below Constitutional: Constitutional: Reports no additional constitutional complaints Eyes: Eyes: Reports no additional eye complaints ENT: Reports system reviewed and no additional complaints, except as documented Cardiovascular: Cardiovascular: Reports no additional cardiovascular complaints, Denies chest pain and Denies dyspnea Respiratory: Respiratory: Reports no additional respiratory complaints, Denies cough and Denies dyspnea Musculoskeletal: Musculoskeletal: Reports as per HPI and Reports other ( Right anterior rib pain) Neurologic: Reports system reviewed and no additional complaints, except as documented Psychiatric: Psychiatric: Reports no additional psychiatric complaints [facility] Past Medical History Medical History GERD (gastroesophageal reflux disease) History of bruising easily Hypertension Osteoporosis Surgical History Surgical History History of appendectomy History of oophorectomy History of shoulder surgery Rt Shoulder - Pin & Anchors History of tooth extraction History of total right hip arthroplasty Presence of left artificial hip joint (05/30/17) Family History Family History Father Hypertension Family history of chronic obstructive pulmonary disease Family history of diabetes mellitus in first degree relative Skin cancer Mother Hypertension Cancer Brain tumor Social History Social History Smoking status: Never smoker Alcohol intake: never Substance use: never Do You Feel Safe in your Home?: Yes Lack of Transportation: No Lack of Food: Never True Current Housing: I Have Housing Concerned About Future Housing: No Difficulty
== END 2024-05-19 19:49 | disposition home or self-care (01) ==
PROVIDERS: Emergency Provider Nurse Practitioner Family
DX: S20.211A Contusion of right front wall of thorax, initial encounter (principal); W01.0XXA Fall on same level from slipping, tripping and stumbling without subsequent striking against object, initial encounter; Z96.651 Presence of right artificial knee joint; K21.9 Gastro-esophageal reflux disease without esophagitis; I10 Essential (primary) hypertension; M81.0 Age-related osteoporosis without current pathological fracture
CPT/HCPCS: 71046; 71100; 99213; G0463

== ENCOUNTER 2024-05-22 14:57 | Emergency (ER) | payer OTHER, SELFPAY ==
--- NOTE | ~2024-05-22 | XR_ITS ---
EXAM: XR shoulder LT min 2V DATE: 05/22/2024 15:42 HISTORY: pain post fall today . COMPARISON: None available. FINDINGS: Screw fixation in the acromion. Soft tissue anchor in the humeral head. Osteopenia. Obliqu e distal left clavicular fracture without significant displacement. No dislocation. No lytic or blast ic lesion. Joint spaces are maintained. No erosion or periosteal change. Soft tissues within normal l imits. IMPRESSION: Nondisplaced distal left clavicular fracture, correlate with pain/tenderness. Reviewed, dictated and finalized at location K. IMPRESSION: Nondisplaced distal left clavicular fracture, correlate with pain/t enderness.
[2024-05-22 15:09] VITALS: BP 163/79; PULSE 76; RESP 18; TEMP 36.8; O2SAT 100
--- NOTE | 2024-05-22 15:17 | ED.UPPEXIN ---
HPI - Extremity Injury (Upper) General Chief Complaint: Extremity Injury, Upper Stated Complaint: fall w lt arm injury Time Seen by Provider: 05/22/24 15:19 Source: patient, RN notes reviewed and old records reviewed Mode of arrival: ambulatory Limitations: no limitations History of Present Illness HPI narrative: 63-year-old female presents to the [facility] with left shoulder pain. Patient was walking, tripped, fell hit her shoulder against a bench. Denies any neck her back pain. Denies hitting head. Denies loss of consciousness. Patient has no open wounds. Tenderness to the anterior portion of the shoulder Onset (ago): hour(s) Related Data Home Medications Medication Instructions Recorded Confirmed diltiazem HCl 240 mg capsule,24 240 mg PO DAILY 02/13/23 05/22/24 hr,extended release (Tiadylt ER) losartan 25 mg tablet 25 mg PO DAILY 02/13/23 05/22/24 calcium carbonate (Tums) 300 mg PO BID Indigestion 03/26/24 05/22/24 lidocaine 5 % topical patch 1 patch topical DAILY Pain 03/26/24 05/22/24 Allergies Allergy/AdvReac Type Severity Reaction Status Date / Time Sulfa (Sulfonamide Allergy Severe Swelling Verified 05/22/24 15:51 Antibiotics) of Lip/Tongue/Throat adhesive tape AdvReac Mild BLISTERS Verified 05/22/24 15:01 Penicillins AdvReac Mild THRUSH Verified 05/22/24 15:01 Review of Systems Review of Systems: All systems reviewed & are unremarkable except as noted in HPI and below Constitutional: Constitutional: Reports no additional constitutional complaints Eyes: Eyes: Reports no additional eye complaints ENT: Reports system reviewed and no additional complaints, except as documented Cardiovascular: Cardiovascular: Reports no additional cardiovascular complaints, Denies chest pain and Denies dyspnea Respiratory: Respiratory: Reports no additional respiratory complaints, Denies chest congestion, Denies cough and Denies dyspnea Gastrointestinal: Gastrointestinal: Reports no additional gastrointestinal complaints, Denies abdominal pain, Denies nausea and Denies vomiting Musculoskeletal: Musculoskeletal: Reports as per HPI and Reports arthralgias (Left anterior shoulder) Integumentary/Breasts: Skin/Breast: Reports system reviewed and no additional complaints, except as docu Neurologic: Reports system reviewed and no additional complaints, except as documented Psychiatric: Psychiatric: Reports no additional psychiatric complaints Allergic/Immunologic: Allergic/Immunologic: Reports no additional allergic/immunologic complaints PMFSH Past Medical History Medical History GERD (gastroesophageal reflux disease) History of bruising easily Hypertension Osteoporosis Surgical History Surgical History History of appendectomy History of oophorectomy History of shoulder surgery Rt Shoulder - Pin & Anchors History of tooth extraction History of total right hip arthroplasty Presence of left artificial hip joint (05/30/17) Family History Family History Father Hypertension Family history of chronic obstructive pulmonary disease Family history of diabetes mellitus in first degree relative Skin cancer Mother Hypertension Cancer Brain tumor Social History Social History Smoking status: Never smoker Alcohol intake: never Substance use: never Do You Feel Safe in your Home?: Yes Lack of Transportation: No Lack of Food: Never True Current Housing: I Have Housing Concerned About Future Housing: No Difficulty Paying Gas/Electric Bills: No Difficulty Paying for Meds: No Currently Unemployed: No Education: Decline to Answer Difficulty w/ Childcare or Family Care: No Living arrangements: with family Additional living arrangements comments: [place]
== END 2024-05-22 16:10 | disposition home or self-care (01) ==
PROVIDERS: Emergency Provider Nurse Practitioner
DX: S42.035A Nondisplaced fracture of lateral end of left clavicle, initial encounter for closed fracture (principal); W01.190A Fall on same level from slipping, tripping and stumbling with subsequent striking against furniture, initial encounter; K21.9 Gastro-esophageal reflux disease without esophagitis; I10 Essential (primary) hypertension; M81.0 Age-related osteoporosis without current pathological fracture
CPT/HCPCS: 73030; 99214; A4565; G0463

== ENCOUNTER 2024-06-23 10:22 | Outpatient (CLI) | payer OTHER, SELFPAY ==
--- NOTE | ~2024-06-23 | XR_ITS ---
Left Shoulder Technique: AP and scapular Y views were obtained. Clinical History: Fracture COMPARISON: 05/22/2024 Findings: Fracture the distal left clavicle is essentially unchanged from prior exam. Orthopedic scre ws the acromion and strength of the humeral head are unchanged. Joint spaces are unchanged. Soft tiss ues are unremarkable. Impression: Stable fracture of the distal left clavicle. Stable postoperative changes, as above. Reviewed, dictated and finalized at location . COLLECTOR Impression: Stable fracture of the distal left clavicle. Stable postoperative changes, as above.
--- NOTE | ~2024-06-23 | XR_ITS ---
Right Knee Technique: AP, lateral, and sunrise views were obtained. Clinical History: Arthroplasty Findings: No fracture or dislocation is seen. Right knee arthroplasty in place. No hardware complicat ion seen. Soft tissues are unremarkable. No joint effusion is seen. Impression: Right knee arthroplasty in place. No abnormality evident. Reviewed, dictated and finalized at location . [facility] Impression: Right knee arthroplasty in place. No abnormality evident.
== END 2024-06-23 10:23 | disposition home or self-care (01) ==
LOC: ANHIMG 10:27
PROVIDERS: Visit Provider Orthopaedic Surgery
DX: S42.035A Nondisplaced fracture of lateral end of left clavicle, initial encounter for closed fracture (principal); X58.XXXA Exposure to other specified factors, initial encounter; Z47.1 Aftercare following joint replacement surgery
CPT/HCPCS: 73030; 73562

== ENCOUNTER 2024-07-21 14:49 | Outpatient (CLI) | payer OTHER, SELFPAY ==
--- NOTE | ~2024-07-21 | XR_ITS ---
XR shoulder LT min 2V Ordering provider: Elian King MD History: . S42.033A - Displaced fracture of lateral end of unspecifi... . Comparison: June 23, 2024 FINDINGS: BONES: Healing fracture of the distal left clavicle with no change in alignment compared to previous study. Postoperative changes in the humerus and acromion process. JOINT SPACES: The acromioclavicular joint is normal. The glenohumeral joint is normal. SOFT TISSUES: Normal. IMPRESSION: Healing fracture in the distal left clavicle with no change from previous examination.. Reviewed, dictated and finalized at location A. CCO CUTTER IMPRESSION: Healing fracture in the distal left clavicle with no change from previous exami lavonne..
== END 2024-07-21 14:50 | disposition home or self-care (01) ==
PROVIDERS: Visit Provider Orthopaedic Surgery
DX: S42.033D Displaced fracture of lateral end of unspecified clavicle, subsequent encounter for fracture with routine healing (principal); X58.XXXD Exposure to other specified factors, subsequent encounter
CPT/HCPCS: 73030

== ENCOUNTER 2024-07-29 12:36 | Emergency (ER) | payer OTHER, SELFPAY ==
--- NOTE | 2024-07-29 12:44 | ED.URI ---
HPI - URI/Sore Throat General Chief Complaint: Upper Respiratory Infection Stated Complaint: Sore throat/ congestion Time Seen by Provider: 07/29/24 12:48 Source: patient, RN notes reviewed and old records reviewed Mode of arrival: ambulatory Limitations: no limitations History of Present Illness HPI Narrative: 63-year-old female presents to the [facility] with complaints of 2 day history increased tiredness, nasal congestion, sore throat runny nose. Reports that she tested positive for COVID yesterday. Is requesting Paxlovid. Reports that she has taken it in the past. Reports she has taken Tylenol, no other treatment prior to arrival Related Data Home Medications ?Medication ?Instructions ?Recorded ?Confirmed ?Last Taken ?Type diltiazem HCl 240 mg capsule,24 240 mg PO DAILY 02/13/23 06/23/24 Unknown History hr,extended release (Tiadylt ER) losartan 25 mg tablet 25 mg PO DAILY 02/13/23 06/23/24 Unknown History calcium carbonate (Tums) 300 mg PO BID Indigestion 03/26/24 06/23/24 Unknown History lidocaine 5 % topical patch 1 patch topical DAILY Pain 03/26/24 06/23/24 Unknown History meloxicam 15 mg tablet mg 07/29/24 Unknown History Allergies Allergy/AdvReac Type Severity Reaction Status Date / Time Sulfa (Sulfonamide Allergy Severe Swelling Verified 07/29/24 12:49 Antibiotics) of Lip/Tongue/Throat adhesive tape Allergy Mild BLISTERS Verified 07/29/24 12:49 Penicillins AdvReac Mild THRUSH Verified 07/29/24 12:49 Review of Systems Review of Systems: All systems reviewed & are unremarkable except as noted in HPI and below Constitutional: Constitutional: Reports as per HPI ENT: Reports as per HPI Cardiovascular: Cardiovascular: Reports no additional cardiovascular complaints, Denies chest pain and Denies dyspnea Respiratory: Respiratory: Reports as per HPI, Denies chest congestion, Reports cough and Denies dyspnea Gastrointestinal: Gastrointestinal: Reports no additional gastrointestinal complaints, Denies abdominal pain, Denies nausea and Denies vomiting PMF Past Medical History Medical History GERD (gastroesophageal reflux disease) History of bruising easily Osteoporosis Hypertension Surgical History Surgical History History of oophorectomy History of appendectomy History of shoulder surgery Rt Shoulder - Pin & Anchors History of total right hip arthroplasty History of tooth extraction Presence of left artificial hip joint (05/30/17) Family History Family History Father Hypertension Family history of chronic obstructive pulmonary disease Family history of diabetes mellitus in first degree relative Skin cancer Mother Hypertension Cancer Brain tumor Social History Social History Smoking status: Never smoker Alcohol intake: never Substance use: never Do You Feel Safe in your Home?: Yes Lack of Transportation: No Lack of Food: Never True Current Housing: I Have Housing Concerned About Future Housing: No Difficulty Paying Gas/Electric Bills: No Difficulty Paying for Meds: No Currently Unemployed: No Education: Decline to Answer Difficulty w/ Childcare or Family Care: No Living arrangements: with family Additional living arrangements comments: [facility] Spiritual care concerns: No Comments At the time of my signature, I reviewed and agree with the nursing past medical, surgical, social, and family history. There is no relevant family history pertinent to the patient complaint. Exam Const: General: cooperative, healthy appearing, comfortable, no acute distress, well developed, alert and well nourished Nutritional Appearance: well nourished Orientation/consciousness: patient oriented x3 Limitations: no limitations HENMT: Head: normal to inspection Ears: hearing grossly normal bilaterally, external ears normal, TM's normal bilaterally, EAC's normal, mastoids normal and no periauricular adenopathy Face/Nose/Sinus: Normal external nose present, Normal nasal mucous membranes and turbinates present, normal facial exam and face symmetric Face and sinus: normal facial exam and face symmetric Mouth: Yes Normal oral and palatal mucosa present, Yes lip normal and Yes tongue normal Eyes: General: appearance normal, both eyes and all related structures Neck: Neck: normal visual inspection, full ROM, no lymphadenopathy and no meningeal signs Chest: Chest palpation & inspection: normal inspection of the chest Resp: Effort & Inspection: normal respiratory effort and able to speak in complete sentences Auscultation: clear to auscultation bilaterally, no crackles, no rales, no rhonchi and no wheezes Cardio: Rate: regular rate Skin: General skin exam: normal color and no rashes or lesions noted Lesions: no lesions Rashes: no rashes Wounds: no wounds Neuro: General: patient oriented x3, gait normal, tone normal, moves all extremities and no meningeal signs Cognition (Neuro): normal cognition Speech: normal speech Gait exam (Neuro): Normal gait present Extrem: General: normal to inspection, full ROM, capillary refill normal and normal gait Psych: Appearance: grossly normal and well kempt Mental Status: mental status grossly normal Speech and movement: Normal speech and movement present and Clear speech present Affect: normal affect Attitude: cooperative Course Course Level of Care: Express Care Visit Vital Signs Vital signs: Vital Signs Temperature 98.4 F 07/29/24 12:48 Pulse Rate 108 H 07/29/24 12:48 Respiratory Rate 18 07/29/24 12:48 Blood Pressure 152/89 H 07/29/24 12:48 Pulse Oximetry 98 07/29/24 12:48 Oxygen Delivery Room Air 07/29/24 12:48 Temperature 98.4 F 07/29/24 12:48 Pulse Rate 108 H 07/29/24 12:48 Respiratory Rate 18 07/29/24 12:48 Blood Pressure 152/89 H 07/29/24 12:48 Pulse Oximetry 98 07/29/24 12:48 Oxygen Delivery Room Air 07/29/24 12:48 Reviewed MDM - URI/Sore Throat MDM Narrative Medical decision making narrative: Patient sitting comfortably in exam room. Nontoxic, vitals are stable except blood pressure mildly elevate as well as heart rate Patient presents with URI symptoms. States that she tested positive for COVID-19 yesterday at home, repeat test today clinic positive. Patient is requesting Paxlovid Educated patient on Paxlovid Patient appropriate for outpatient treatment with OTC meds. Discharge instructions reviewed with patient, as well as provided in writing per nursing staff. The instructions also include specific and strict return/GO TO THE ER as well as f/u information. All questions have been answered, and the patient deny any further questions with discharge and discharge plan. Some parts of this dictation were generated by voice recognition software and may contain typographical and/or grammatical inaccuracies. Differential Diagnosis Differential diagnosis: Likely upper respiratory infection, otitis media, sinusitis, viral infection, bronchitis and pharyngitis Lab Data Labs: Lab Results 07/29/24 Range/Units 13:17 POC SARS CoV-2 Ag Positive (Negative) Reviewed Critical Care Time Critical Care Time Critical Care Time: No Discharge Plan Discharge Clinical Impression: COVID-19 Patient Disposition: Home, Self-Care Condition: Stable Instructions: Antibiotic Form Additional Instructions: Today your blood pressure 152/89. Is important you follow-up with primary care provider in take your medications, losartan and diltiazem as prescribed Paxil of it is not like an antibiotic. You still need to stay home, away from other people, wear a mask. Continue to treat your symptoms using Tylenol as well as cold medicine such as Coricidin HBP will help your symptoms. Stay hydrated with plenty of water, Gatorade, Pedialyte. Follow-up with primary care provider For worsening symptoms please go directly to the nurse to emergency room Patient Language: South Sudanese Prescriptions: New Paxlovid 300 mg (150 mg x 2)-100 mg tablets,dose pack See Rx Instructions .ROUTE .COMPLEX Qty: 30 0RF Rx Instructions: take TWO 150 mg tablets of nirmatrelvir with ONE 100 mg tablet of ritonavir twice daily for 5 days No Action losartan 25 mg tablet 25 mg PO DAILY Patient Comments: QAM diltiazem HCl [Tiadylt ER] 240 mg capsule,extended release 24 hr 240 mg PO DAILY Patient Comments: QAM meloxicam 15 mg tablet lidocaine 5 % adhesive patch,medicated 1 patch topical DAILY Tums 300 mg (750 mg) Tablet,Chewable 300 mg PO BID Follow-up/Referrals: Anupam,Madhuri Boykin APRN [Primary Care Provider] - 2 Weeks ([facility] care follow up blood pressure check 152/89) Stand Alone Forms: Work/School Release IP Time of Disposition: 13:10
[2024-07-29 12:48] VITALS: BP 152/89; PULSE 108; RESP 18; TEMP 36.9; O2SAT 98
[2024-07-29 13:19] LABS: EDCOVIDSCREEN Positive (Negative)
== END 2024-07-29 13:15 | disposition home or self-care (01) ==
PROVIDERS: Emergency Provider Nurse Practitioner; PCP Nurse Practitioner Family
DX: U07.1 COVID-19 (principal); I10 Essential (primary) hypertension; K21.9 Gastro-esophageal reflux disease without esophagitis; M81.0 Age-related osteoporosis without current pathological fracture; Z96.643 Presence of artificial hip joint, bilateral
CPT/HCPCS: 87426; 99213; G0463

== ENCOUNTER 2024-09-17 15:34 | Outpatient (CLI) | payer OTHER, SELFPAY ==
--- NOTE | ~2024-09-17 | MM_ITS ---
EXAMINATION: MM screening liz BI w roya HISTORY: Screening mammogram TECHNIQUE: Craniocaudal and mediolateral oblique 3-D tomosynthesis images were obtained and synthetic 2-D images were generated. CAD analysis was submitted and interpreted. COMPARISON: 03/10/2021 BREAST PARENCHYMAL COMPOSITION:Not Dense. There are scattered areas of fibroglandular density. FINDINGS: No suspicious mass, calcification, or architectural distortion are identified in either ramses ast to suggest malignancy. There has been no suspicious interval change. IMPRESSION: No mammographic evidence of malignancy. Recommend routine screening mammography in one year. BI-RADS Category 1: Negative Reviewed, dictated and finalized at location . ICAL REHAB SPECIALIST
--- OUTSIDE RECORDS SUMMARY | 2024-09-17 15:37 | XMS_ITS | Clinical Summary ---
Author Organization [facility] Address [address] [place] [address]. [place] [address] [place] [address] Care Team Providers Care Cream Cheese Maker Name Role Phone Madhuri Bo [facility] Primary Care Provider + Allergies Active Allergy Reactions Criticality Noted Date Comments Misc Natural Products Contact Dermatitis 2022 Coban Penicillins Hives Medium 01/27/2020 Sulfa Antibiotics Swelling Medium 01/27/2020 Tongue swelling Tape Rash,Contact Dermatitis Medium 01/27/2020 Any medical tape Tolmetin GI Upset Low 04/17/2020 Medications meloxicam (MOBIC) 15 MG tablet Take 1 tablet (15 mg total) by mouth daily. 2 Active albuterol sulfate HFA 108 (90 Base) MCG/ACT inhaler Inhale 2 puffs into the lungs every 4 (four) hours as needed. 2 Active lidocaine (LIDODERM) 5 %Indications:Chron ic low back pain without sciatica, unspecified back pain laterality PLACE 1 PATCH ONTO THE SKIN NEEDED 30 patch 5 3 Active vitamin D2, ergocalciferol, (DRISDOL) 1.25 mg capsuleIndications :Vitamin D deficiency TAKE 1 CAPSULE BY MOUTH ONE TIME PER WEEK 12 capsule 3 Active atorvastatin (LIPITOR) 20 MG tabletIndications: Elevated triglycerides with high cholesterol take 1 tablet by mouth nightly at bedtime 90 tablet 1 4 Active losartan (COZAAR) 25 MG tabletIndications: Essential hypertension TAKE 1 TABLET (25 MG TOTAL) BY MOUTH DAILY. 90 tablet 4 Active TIADYLT ER 240 MG 24 hr capsuleIndications :Essential hypertension TAKE 1 CAPSULE (240 MG TOTAL) BY MOUTH DAILY. PATIENT IS DUE FOR A FOLLOW UP VISIT 90 capsule 4 Active Vkewnw-DL-Ieo Edward-Caff Cit (COUGH/COLD MEDICINE OR) Take 1 tablet by mouth daily as needed (cough). Active Active Problems Problem Noted Date Diagnosed Date Dysphagia, unspecified type 03/09/2021 Nausea and vomiting, intract ability of vomiting not specified, unspecified vomiting type 03/09/2021 Resolved Problems Problem Noted Date Diagnosed Date Resolved Date Gastritis without bleeding, unspecified chronicity, unspecified gastritis type 04/05/2021 0 01/07/2023 Epigastric abdominal pain 03/09/2021 Encounters Date Type Department Care Team Description 06/18/2024 Scan [facility]VCS Scanned, Doc Med Group from Last 3 Months Immunizations Name Administration Dates Next Due Arexvy Respiratory Syncytial Virus (RSV, adjuvanted) 0.5 mL, PF 08/27/2023 Fluzone 6 Months+ Quad (0.5 mL Prefilled Syringe) 07/08/2019 Influenza (Generic) 06/10/2018 Influenza Adult (Generic) 08/22/2023,,06/05/2021,2016 PFIZER COVID-19 (ORIGINAL FORMULATION, PURPLE CAP) mRNA, LNP-S, PF, 30 MCG/0.3 ML DOSE 06/25/2022 PFIZER COVID-19 BIVALENT (12 +) mRNA, LNP-S, PF, 30 MCG/0.3 ML DOSE 06/25/2022 Pneumococcal (Prevnar 20) 06/09/2022 Shingrix 07/08/2019 Tdap (Adacel) 03/19/2024 Family History Medical History Relation Comments Skin cancer Brother COPD Father Diabetes Father Emphysema Father Ulcerative Colitis Father mesothelioma Father skin cancer Father Hypertension Mother Lung Cancer Mother brain tumors Mother Relation Status Comments Brother Father Mother Social History Tobacco Use Types Packs/Day Years Used Date Smoking Tobacco: Never Smokeless Tobacco: Never Tobacco Cessation:Counseling Given: No Alcohol Use Standard Drinks/Week Comments Yes 1 (1 standard drink = 0.6 oz pur e alcohol) socially PHQ-2 Answer Date Recorded Patient Health Questionnaire-2 Score 0 03/19/2024 Comments No Sex and Gender Information Value Date Recorded Sex Assigned at Female 01/06/2023 8:02 AM CDT Legal Sex Female 3:43 AM CDT Gender Identity Female 01/06/2023 8:02 AM CDT Sexual Orientation Straight 01/06/2023 8: 02 AM CDT Last Filed Vital Signs Vital Sign Reading Time Taken Comments Blood Pressure 134/86 03/19/2024 10:19 AM CDT Pulse 84 03/19/2024 10:19 AM CDT Temperature 36.4 ??C (97.5 ??F) 03/19/2024 10:19 AM C DT Respiratory Rate 16 03/19/2024 10:19 AM CDT Oxygen Saturation 97% 03/19/2024 10:19 AM CDT Inhaled Oxygen Concentration - - Weight 100.2 kg (221 lb) 03/19/2024 10:19 AM CDT Height 175.3 cm (5' 9 ) 03/19/2024 10:19 AM CDT Body Mass Index 32.64 03/19/2024 10:19 AM CDT Plan of Treatment Health Maintenance Due Date Last Done Comments Hepatitis C 1978 Mammogram Screening 03/10/2023 03/10/2021 COVID-19 Vaccine ( season) 2024 08/27/2023, 06/25/2022, 06/25/2022, Additional history exists Annual Physical 04/22/2024 04/22/2023, 01/16, 01/27/2020 Influenza Adult (#1) 2024 08/22/2023, 06/09/2022, 06/05/2021, Additional history exists PHQ-2 (Physician Chilkat) 08/18/2024 03/19/2024 PHQ-2 (Physician Chilkat) 03/19/2025 03/19/2024 Zoster Vaccines (2 of 2) 03/19/2025 07/08/2019 Pos tponed from 09/02/2019 (Patient Refused) Colorectal Cancer Screening FIT-DNA (3 Years) 01/27/2026 01/27/2023, 01/27/2023 Cervical Cancer Screening Pap Smear (Age 30 to 64) Every 3 Years 04/22/2026 04/22/2023, 01/31/2021 Cervical Cancer Screening Pap with HPV Testing (Age 30 to 64) Every 5 Years 04/22/2028 04/22/2023, 01/31/2021 Cervical Cancer Screening with HPV 04/22/2028 DTaP, Tdap and Td Vaccines (2 - Td or Tdap) 03/19/2034 03/19/2024 Pneumococcal Vaccine: Pediatrics (0 to 5 Years) and At-Risk Patients (6 to 64 Years) Aged Out 06/09/2022 No longer eligible based on patient's age to complete this topic RSV Immunization or 60+ Years Completed 08/27/2023 Meningococcal B Vaccine Aged Out No l onger eligible based on patient's age to complete this topic Meningococcal Vaccine Aged Out No rolando zaynab eligible based on patient's age to complete this topic RSV Immunizations Under 20 Months Aged Out No longer eligible based on patient's age to complete this topic Procedures Procedure Name Priority Date/Time Associated Diagnosis Comments THINPREP IMAGING PAP AND HPV MRNA E6/E7 Routine 04/22/2023 12:40 PM CDT COLOGUARD (EXACT SCIENCE) Routine 01/27/2023 8:35 AM CDT Colon cancer screening MAMMOGRAM GENERIC (SCAN ORDER) 03/10/2021 from Last 3 Months or Most Recently Relevant to Health Maintenance Results * THINPREP IMAGING PAP AND HPV MRNA E6/E7 (04/22/2023 12:40 PM CDT) CLINICAL INFORMATION: None given [facility] [place] Clinical Information: NONE GIVEN [facility] [place] Date of Last Pap NONE GIVEN [facility] [place] Previous Biopsy? NONE GIVEN [facility] [place] SOURCE (QST) None given [facility] [place] STATEMENT OF ADEQUACY: [facility] [place] Comment: Satisfactory for evaluation. Endocervical/transformation zone component present. PAP INTERPRETATION/RES ULTS Cytology Results: Negative for intraepithelial lesion or malignancy. [place], [place] COMMENT: This Pap test has been evaluated with computer assisted technology. [place], [place] EMPLOYEE BENEFITS INSURANCE AGENT QUE LUCKEY, [place] Comment: ERIK NIETO(ASCP) CT Screening Location: [place] [address] [address] [id number] COMMENT: [place], [place] Comment: EXPLANATORY NOTE: The Pap is a screening test for cervical cancer. It is not a diagnostic test and is subject to false negative and false positive results. It is most reliable when a satisfactory sample, regularly obtained, is submitted with relevant clinical findings and history, and when the Pap result is evaluated along with historic and current clinical information. HPV MRNA E6/E7 Not Detected Not Detected [facility] Comment: Methodology: Ornament Setter-Mediated Amplification This assay detects E6/E7 viral messenger RNA (mRNA) from 14 high-risk HPV types (16,18,31,33,35,39,45,51,52,56,58,59,66,68). Cervical sources are required for HPV testing. If a vaginal source from a patient who has had a total hysterectomy with removal of cervix was submitted, please contact the testing laboratory for alternative testing options. For additional information, please refer to http://education.upad/faq/QYP403q9 (This link if provided for information/ educational purposes only.) 04/22/2023 12:4 0 PM CDT 04/23/2023 5:36 AM CDT Narrative [facility] - 04/24/2023 8:58 AM CDT FASTING: UNKNOWN Resulting Agency Comment Performing Organization Information: ?Site ID: [id number] ?Name: [facility] ?Address: [address] [id number] ?Director: Real Flores MD ?Site ID: [id number] ?Name: [facility] ?Address: [address] [address] [id number] ?Director: Real Flores Lluvia HEARD PATHOLOGY/CYTOLOGY ORDERABLE S Final Result [facility] [place] [id number] [place] [id number], [facility] [place] [address] [place] [address], [place] * COLOGUARD (EXACT SCIENCE) (01/27/2023 8:35 AM CDT) COLOGUARD RESULT Negative Negative [facility] (CLIA #:[id number]) Comment: NEGATIVE TEST RESULT. A negative Cologuard result indicates a low likelihood that a colorectal cancer (CRC) or advanced adenoma (adenomatous polyps with more advanced pre-malignant features) ??is present. The chance that a person with a negative Cologuard test has a colorectal cancer is less than 1 in 1500 (negative predictive value >99.9%) or has an ??advanced adenoma is less than ??5.3% (negative predictive value 94.7%). These data are based on a prospective cross-sectional study of 10,000 individuals at average risk for colorectal cancer who were screened with both Cologuard and colonoscopy. (Magdyialwhitney T. et al, N Engl J Med 2014;370(14):1286- 1297) The normal value (reference range) for this assay is negative. COLOGUARD RE-SCREENING RECOMMENDATION: Periodic colorectal cancer screening is an important part of preventive healthcare for asymptomatic individuals at average risk for colorectal cancer. ??Following a negative Cologuard result, the [place] Cancer Society and U.S. Multi-Society Task Force screening guidelines recommend a Cologuard re-screening interval of 3 years. References: [place] Cancer Society Guideline for Colorectal Cancer Screening: https://www.cancer.org/cancer/kgyco-hgepnp-hghltd/yyelxnaqa-bpdiifyen-ygxpmpi/ac s-rec ommendations.html.; Pavan ROQUE, Christine HERNANDEZ, Tiago BRAMBILA, Colorectal Cancer Screening: Recommendations for Physicians and Patients from the U.S. Multi-Society Task Force on Colorectal Cancer Screening , Am J Gastroenterology 2017; 112:3454-9077. TEST DESCRIPTION: Composite algorithmic analysis of stool DNA-biomarkers with hemoglobin immunoassay. ?? Quantitative values of individual biomarkers are not reportable and are not associated with individual biomarker result reference ranges. Cologuard is intended for colorectal cancer screening of adults of either sex, 45 years or older, who are at average-risk for colorectal cancer (CRC). Cologuard has been approved for use by the U.S. FDA. The performance of Cologuard was established in a cross sectional study of average-risk adults aged 50-84. Cologuard performance in patients ages 45 to 49 years was estimated by sub-group analysis of near-age groups. Colonoscopies performed for a positive result may find as the most clinically significant lesion: colorectal cancer [4.0%], advanced adenoma (including sessile serrated polyps greater than or equal to 1cm diameter) [20%] or non- advanced adenoma [31%]; or no colorectal neoplasia [45%]. These estimates are derived from a prospective cross-sectional screening study of 10,000 individuals at average risk for colorectal cancer who were screened with both Cologuard and colonoscopy. (Lakhwinder Hung. et al, N Engl J Med 2014;370(14):5059-8132.) Cologuard may produce a false negative or false positive result (no colorectal cancer or precancerous polyp present at colonoscopy follow up). A negative Cologuard test result does not guarantee the absence of CRC or advanced adenoma (pre-cancer). The current Cologuard screening interval is every 3 years. ([place] [employer] Society and U.S. Multi-Society Task Force). Cologuard performance data in a 10,000 patient pivotal study using colonoscopy as the reference method can be accessed at the following location: www.[employer]/results. Additional description of the Cologuard test process, warnings and precautions can be found at www.[employer].com. STOOL STOOL SPECIMEN / Unknown 01/27/2023 8:35 AM CDT 01/28/2023 5:11 PM CDT Lluvia HEARD BODY FLUIDS AND STOOLS ORDER LORI Final Result [facility] [address] [place] [address], [facility] (CLIA #:[id number]) [address] [place] [address] * MAMMOGRAM GENERIC (03/10/2021) Anatomical Region Laterality Modality Other 03/10/2021 Narrative 03/10/2021 Ordered by an unspecified provider. us Documents Scanned SCANNING Final Result from Last 3 Months or Most Recently Relevant to Health Maintenance Insurance [facility] Care Teams Cream Cheese Maker Relationship Specialty Start Date End Date Madhuri Bo, MFT-BC [id number], [address] [place], [place] [id number] PCP - General Nurse Practitioner Family 12/23/23
--- OUTSIDE RECORDS SUMMARY | 2024-09-17 15:37 | XMS_ITS | Clinical Summary ---
Author Organization [facility] Care Team Providers Care Branch Library Clerk Name Role Phone Unavailable Primary Care Provider Unavailabl e Social History Tobacco Use Types Packs/Day Years Used Date Smoking Tobacco: Never Assessed Comments Unknown Sex and Gender Information Value Date Recorded Sex Assigned at Not on file Legal Sex Female 9:37 PM CDT Gender Identity Not on file Sexual Orientation Not on file Plan of Treatment Health Maintenance Due Date Last Done Comments Hepatitis C Virus (HCV) Screening 1961 TdaP Immunization 1961 Pap Smear 1982 Cervical Cancer Screening (CCS) 1991 HPV/Cotest 1991 Colonoscopy 2006 Colorectal Cancer Screening 2006 Cologuard 2011 Immunochemical Fecal Occult Blood 2011 Mammogram 2011 Pneumococcal Immunization (50+ years) (1 of 1 - PCV) 2011 Zoster Immunization (2 of 2) 09/02/2019 07/08/2019 Influenza Immunization (#1) 04/18/202405/18, 05/25/2020, 07/08/2019, Additional history exists SARS-COV-2 Immunization ( season) 2024 06/05/2021, 11/16/2020, 10/26/2020 Respiratory Syncytial Virus (RSV) Immunization (Adult) (1 - 1-dose 75+ series) 2036 Hepatitis B Immunization Aged Out No longer eligible based on patient's age to complete this topic Meningococcal Immunization (ACWY) Aged Out No longer eligible based on patient's age to complete this topic Pneumococcal Immunization Combined Aged Out No longer eligible based on patient's age to complete this topic Rotavirus Immunization Aged Out No lo nger eligible based on patient's age to complete this topic
== END 2024-09-17 15:35 | disposition home or self-care (01) ==
PROVIDERS: PCP Nurse Practitioner Family; Visit Provider Nurse Practitioner Family
DX: Z12.31 Encounter for screening mammogram for malignant neoplasm of breast (principal)
CPT/HCPCS: 77063; 77067

== ENCOUNTER 2025-03-31 17:10 | Outpatient (CLI) | payer OTHER, SELFPAY ==
--- NOTE | ~2025-03-31 | XR_ITS ---
EXAM: XR knee RT 3V DATE: 03/31/2025 17:47 HISTORY: Z96.651 - Presence of right artificial knee joint . COMPARISON: 06/23/2024. FINDINGS: Decreased mineralization. No fracture or dislocation. No lytic or blastic lesion. Right kn ee arthroplasty hardware in good position. No hardware fracture or perihardware lucency. Small knee j oint effusion. No erosion or periosteal change. Soft tissues within normal limits. IMPRESSION: Osteopenia. No acute osseous finding in the right knee. Uncomplicated appearing right kne e total arthroplasty. Reviewed, dictated and finalized at location K. IMPRESSION: Osteopenia. No acute osseous finding in the right knee. Uncomplicat ed appearing right knee total arthroplasty.
--- OUTSIDE RECORDS SUMMARY | 2025-03-31 17:18 | XMS_ITS | Clinical Summary ---
Author Organization [facility] Care Team Providers Care Auto Headlight Mechanic Name Role Phone Unavailable Primary Care Provider [...] Cervical Cancer Screening (CCS) 1991 HPV/Cotest 1991 Cologuard 2006 Colonoscopy 2006 Colorectal Cancer Screening 2006 Immunochemical Fecal Occult Blood 2006 Pneumococcal Immunization (50+ years) (1 of 1 - PCV) 2011 Zoster Immunization (2 of 2) 09/02/2019 07/08/2019 SARS-COV-2 Immunization ( season) 2024 06/05/2021, 11/16/2020, 10/26/2020 Influenza Immunization (#1) 04/18/202505/18, 05/25/2020, 07/08/2019, Additional history exists Respiratory Syncytial Virus (RSV) Immunization (Adult) (1 - 1-dose 75+ series) 2036 Hepatitis B Immunization Aged Out No longer eligible based on patient's age to complete this topic Human Papillomavirus (HPV) Immunization Aged Out No longer eligible based on patient's age to complete this topic Meningococcal Immunization (ACWY) Aged Out No longer eligible based on patient's age to complete this topic Rotavirus Immunization Aged Out No lo nger eligible based on patient's age to complete this topic
--- OUTSIDE RECORDS SUMMARY | 2025-03-31 17:18 | XMS_ITS | Clinical Summary ---
Author Organization [facility] Address [facility] access [facility] [place] [address] Care Team Providers Care Record Searcher Name Role Phone Jhon Haddad MD Primary Care Provider [phone] Allergies Active Allergy Reactions Criticality Noted Date Comments Adhesive Rash Medium 01/27/2020 Penicillins Hives Medium 01/27/2020 Sulfa (Sulfonamide Antibiotics) Tolmetin Unknown Low 04/17/2020 Unclassified Drug Other (See comments),Swelling Medium 01/27/2020 Coban Medications Tiadylt ER 240 mg 24 hr capsule Take by mouth daily 0 Active oxybutynin XL (DITROPAN-XL) 10 mg 24 hr tablet Take 1 tablet (10 mg total) by mouth daily [address] (PROTONIX) 40 mg EC tablet 1 tablet (40 mg total) as needed 9 Active atorvastatin (LIPITOR) 20 mg tablet TAKE 1 TABLET BY MOUTH NIGHTLY AT BEDTIME 1 Active ciprofloxacin (CIPRO) 500 mg tablet TAKE 1 TABLET BY MOUTH EVERY 12 HOURS FOR 7 DAYS 1 Active HYDROcodone-sobeida taminophen (NORCO) 5-325 mg per tablet TAKE 1 TABLET BY MOUTH EVERY 6 HOURS NEEDED FOR 7 DAYS 1 Active losartan (COZAAR) 25 mg tablet Take 1 tablet (25 mg total) by mouth daily 1 Active albuterol HFA (PROVENTIL HFA,VENTOLIN HFA,PROAIR HFA) 90 mcg/actuation inhaler Inhale 2 puffs every 4 (four) hours as needed 2 Active clotrimazole (MYCELEX) 10 mg gary Take 1 tablet (10 mg total) by mouth 5 (five) times a day Active ergocalciferol (VITAMIN D) 50,000 unit capsule Take 1 capsule (50,000 Units total) by mouth once a week 3 Active Paxlovid tablets,dose pack tablets in a dose pack (EUA) TAKE 2 TABLETS (NIRMATRELVIR) AND TAKE 1 TABLET (RITONAVIR) BY MOUTH TWICE A DAY FOR 5 DAYS 3 Active PARoxetine (PAXIL) 10 mg tablet Take 1 tablet (10 mg total) by mouth high tension tester before breakfast 3 Active terbinafine (LamiSIL) 250 mg tablet Take 1 tablet (250 mg total) by mouth daily 2 Active lidocaine (LIDODERM) 5 % Place 1 patch on the skin daily Remove & discard patch within 12 hours or as directed by MD. 30 patch 4 Active meloxicam (MOBIC) 15 mg tablet Take 1 tablet (15 mg total) by mouth daily 30 tablet 2 4 Active Active Problems Problem Noted Date Diagnosed Date Dysphagia 03/09/2021 Epigastric abdominal pain 03/09/2021 Nausea and vomiting 03/09/2021 Chronic infection of sinus 09/25/2009 Immunizations Immunization Administration Dates Next Due Influenza, Quadrivalent, Spl it, Preservative Free, Intramuscular 07/08/2019,05/15/2017 Influenza, Trivalent, IM (MDV) 06/10/2018 ZOSTER Recombinant 07/08/2019 Surgical History Surgery Date Site/Laterality Comments TOTAL HIP ARTHROPLASTY CHOLECYSTECTOMY Medical History Medical History Date Comments Arthritis GERD (gastroesophageal reflux disease) Hypertension Obesity Urinary tract infection Social History Tobacco Use Types Packs/Day Years Used Date Smoking Tobacco: Never Personal Safety Answer Date Recorded Getting School Help Needed Not on file 08/12 Comments Unknown Sex and Gender Information Value Date Recorded Sex Assigned at Not on file Legal Sex Female 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 Gender Identity Not on file Sexual Orientation Not on file Obstetrics History Last Filed Vital Signs Vital Sign Reading Time Taken Comments Blood Pressure - - Pulse - - Temperature - - Respiratory Rate - - Oxygen Saturation - - Inhaled Oxygen Concentration - - Weight 116.1 kg (256 lb) 04/17/2020 12:41 PM CDT Height 175.3 cm (5' 9) 04/17/2020 12:41 PM CDT Body Mass Index 37.8 04/17/2020 12:41 PM CDT Plan of Treatment Health Maintenance Due Date Last Done Comments Breast Cancer Screening-Mammogram 1961 Colon Cancer Screening-Colonoscopy 1961 Depression Screening 1961 Hepatitis C Screening 1961 Hepatitis B Screening 1979 Regular Well Visit/Exam 18-64 1979 Zoster Vaccine (2 of 2) 09/02/2019 07/08/2019 Cervical Cancer Screening 01/31/2022 01/31/2021 Influenza Vaccine (#1) 2025 , 06/09/2022, 06/05/2021, Additional history exists DTaP/Tdap/Td Vaccine (2 - Td or Tdap) 03/19/2034 03/19/2024 Pneumococcal vaccine <65 Aged Out No longer eligible based on patient's age to complete this topic Insurance [facility] [employer] [place], [place] [facility] [employer] [facility] [employer] Care Teams Record Searcher Relationship Specialty Start Date End Date Jhon Haddad MD [address] [place] [address] SEVERIANO LESLIE [id number] PCP - General Family Medicine 01/20/20
--- OUTSIDE RECORDS SUMMARY | 2025-03-31 17:18 | XMS_ITS | Clinical Summary ---
Author Organization [facility] Address [address] [place] [id number] Care Team Providers Care Ripening Room Hand Name Role Phone Jean-Pierre Felix MD Primary Care Provider Allergies Active Allergy Reactions Criticality Noted Date [...] as needed. 2 Active lidocaine (LIDODERM) 5 %Indications:Senior Research Consultant christiano low back pain without sciatica, unspecified back pain laterality PLACE 1 PATCH ONTO THE SKIN NEEDED 30 patch 5 3 Active vitamin D2, ergocalciferol, (DRISDOL) 1.25 mg capsuleIndication s:Vitamin D deficiency TAKE 1 CAPSULE BY MOUTH ONE TIME PER WEEK 12 capsule 3 Active Additional Information Patient not taking.Reported on 10/20/2024 atorvastatin (LIPITOR) 20 MG tabletIndications :Elevated triglycerides with high cholesterol take 1 tablet by mouth nightly at bedtime 90 tablet 1 4 Active Additional Information Patient not taking.Reported on 10/20/2024 losartan (COZAAR) 25 MG tabletIndications :Essential hypertension TAKE 1 TABLET (25 MG TOTAL) BY MOUTH DAILY. 90 tablet 4 Active Bwvvrp-AC-Ewy Edward-Caff Cit (COUGH/COLD MEDICINE OR) Take 1 tablet by mouth daily as needed (cough). Active lidocaine (LIDODERM) 5 % Place 1 patch onto the skin daily. 4 Active dilTIAZem ER (TIADYLT ER) 240 MG 24 hr capsuleIndication s:Essential hypertension Take 1 capsule (240 mg total) by mouth daily. 90 capsule 1 5 Active Active Problems Problem Noted Date Diagnosed Date Dysphagia, unspecified type 03/09/2021 Nausea and vomiting, intract ability of vomiting not specified, unspecified vomiting type 03/09/2021 Resolved Problems Problem Noted Date Diagnosed Date Resolved Date Gastritis without bleeding, unspecified chronicity, unspecified gastritis type 04/05/2021 0 01/07/2023 Epigastric abdominal pain 03/09/2021 Encounters Date Type Department Care Team Description 03/03/2025 Orders Only [facility] Family & Internal Medicine [address] [address] Jean-Pierre Felix MD from Last 3 Months Immunizations Immunization Administration Dates Next Due Arexvy Respiratory Syncytial [...] Answer Date Recorded Patient Health Questionnaire-2 Score 1 10/20/2024 Comments No Sex and Gender Information Value Date Recorded Sex Assigned at Female 01/06/2023 8:02 AM CDT Legal Sex Female 3:43 AM CDT Gender Identity Female 01/06/2023 8:02 AM CDT Sexual Orientation Straight 01/06/2023 8: 02 AM CDT Last Filed Vital Signs Vital Sign Reading Time Taken Comments Blood Pressure 160/100 11/03/2024 8:59 AM CDT Pulse 97 10/20/2024 7:55 AM STATEMENT CLERKS SUPERVISOR Temperature 36.6 C (97.9 F) 10/20/2024 7:55 AM STATEMENT CLERKS SUPERVISOR Respiratory Rate 16 10/20/2024 7:55 AM STATEMENT CLERKS SUPERVISOR Oxygen Saturation 99% 10/20/2024 7:55 AM STATEMENT CLERKS SUPERVISOR Inhaled Oxygen Concentration - - Weight 100.2 kg (221 lb) 10/20/2024 7:55 AM STATEMENT CLERKS SUPERVISOR Height 175.3 cm (5' 9) 10/20/2024 7:55 AM STATEMENT CLERKS SUPERVISOR Body Mass Index 32.64 10/20/2024 7:55 AM STATEMENT CLERKS SUPERVISOR Plan of Treatment Health Maintenance Due Date Last Done Comments Hepatitis C 1979 Zoster Vaccines (2 of 2) 09/02/2019 07/08/2019 COVID-19 Vaccine ( season) 2024 08/27/2023, 06/25/2022, 06/25/2022, Additional history exists Annual Physical 04/22/2024 04/22/2023, 01/16, 01/27/2020 Colorectal Cancer Screening FIT-DNA (3 Years) 01/27/2026 01/27/2023, 01/27/2023 Cervical Cancer Screening Pap Smear (Age 30 to 64) Every 3 Years 04/22/2026 04/22/2023, 01/31/2021 Mammogram Screening 09/17/2026 09/17/2024, Cervical Cancer Screening Pap with HPV Testing (Age 30 to 64) Every 5 Years 04/22/2028 04/22/2023, 01/31/2021 Cervical Cancer Screening with HPV 04/22/2028 DTaP, Tdap and Td Vaccines (2 - Td or Tdap) 03/19/2034 03/19/2024 Pneumococcal Vaccine: 50+ Years Completed 06/09/2022 RSV Immunization or 60+ Years Completed 08/27/2023 PHQ-2 (Physician [place]) Completed 10/20/2024 Meningococcal B Vaccine Aged Out No l onger eligible based on patient's age to complete this topic Meningococcal Vaccine Aged Out No rolando zaynab eligible based on patient's age to complete this topic RSV Immunizations Under 20 Months Aged Out No longer eligible based on patient's age to complete this topic Procedures Procedure Name Priority Date/Time Associated Diagnosis Comments MAMMOGRAM GENERIC (SCAN ORDER) 09/17/2024 THINPREP IMAGING PAP AND HPV MRNA E6/E7 Routine 04/22/2023 12:40 PM CDT COLOGUARD (EXACT SCIENCE) Routine 01/27/2023 8:35 AM CDT Colon cancer screening from Last 3 Months or Most Recently Relevant to Health Maintenance Results * MAMMOGRAM GENERIC (SCAN ORDER) (09/17/2024) Anatomical Region Laterality Modality Other 09/17/2024 [facility] Scanned SCANNING Final Resu lt * THINPREP IMAGING PAP AND HPV MRNA E6/E7 (04/22/2023 12:40 PM CDT) CLINICAL INFORMATION: None given [place] Clinical Information: NONE GIVEN [facility] Date of Last Pap NONE [place]EN [place] Previous Biopsy? NONE [place]EN [place] SOURCE (QST) None given [facility] STATEMENT OF ADEQUACY: [facility] Comment: Satisfactory for evaluation. Endocervical/transformation zone component present. PAP INTERPRETATION/RES ULTS Cytology Results: Negative for intraepithelial lesion or malignancy. [facility] COMMENT: This Pap test has been evaluated with computer assisted technology. [place] POCKET CUTTER [place] Comment: JAF, CT(ASCP) CT Screening Location: [place] [address] [address] [place] [id number] COMMENT: [place] Comment: EXPLANATORY NOTE: The Pap is [...] HPV MRNA E6/E7 Not Detected Not Detected [facility] Comment: Methodology: Receptionist Scheduler-Mediated Amplification This assay detects E6/E7 viral messenger RNA (mRNA) from 14 high-risk HPV types (16,18,31,33,35,39,45,51,52,56,58,59,66,68). Cervical sources are required for HPV testing. If a vaginal source from a patient who has had a total hysterectomy with removal of cervix was submitted, please contact the testing laboratory for alternative testing options. For additional information, please refer to http://education.PayPal/faq/XJW381b2 (This link if provided for information/ educational purposes only.) 04/22/2023 12:4 0 PM CDT 04/23/2023 5:36 AM CDT Narrative [facility] - 04/24/2023 8:58 AM CDT FASTING: UNKNOWN Resulting Agency Comment Performing Organization Information: Site ID: [id number] Name: [facility] Address: [address] [address] Director: Real Flores MD Site ID: [id number] [facility] Address: [address] [address] [place] [id number] Director: Real Flores Lluvia HEARD PATHOLOGY/CYTOLOGY ORDERABLE S Final Result [facility] [place] [id number] [place] [id number], [facility] [place] [address] [place] [address], * COLOGUARD (EXACT SCIENCE) (01/27/2023 8:35 AM CDT) COLOGUARD RESULT Negative Negative [email or web address] (CLIA #:[id number]) Comment: NEGATIVE TEST RESULT. A negative Cologuard result indicates a low likelihood that a colorectal cancer (CRC) or advanced adenoma (adenomatous polyps with more advanced pre-malignant features) is present. The chance that a person with a negative Cologuard test has a colorectal cancer is less than 1 in 1500 (negative predictive value >99.9%) or has an advanced adenoma is less than 5.3% (negative predictive value 94.7%). These data are based on a prospective cross-sectional study of 10,000 individuals at average risk for colorectal cancer who were screened with both Cologuard and colonoscopy. (Lakhwinder Hung. et al, N Engl J Med 2014;370(14):9395-8098) The normal value (reference range) for this assay is negative. COLOGUARD RE-SCREENING RECOMMENDATION: Periodic colorectal cancer screening is an important part of preventive healthcare for asymptomatic individuals at average risk for colorectal cancer. Following a negative Cologuard result, the [place] [employer] Society and U.S. Multi-Society Task Force screening guidelines recommend a Cologuard re-screening interval of 3 years. References: [place] [employer] Guideline for Colorectal Cancer Screening: https://www.cancer.org/cancer/tgkvr-dofhtl-qholkc/olwgvldrw-gkjrrcdcv-jashary/ac s-rec ommendations.html.; Paavn ROQUE, Christine HERNANDEZ, Tiago GreenbergK, Colorectal Cancer Screening: Recommendations for Physicians and Patients from the U.S. Multi-Society Task Force on Colorectal Cancer Screening , Am J Gastroenterology 2017; 112:1924-7883. TEST DESCRIPTION: Composite algorithmic analysis of stool DNA-biomarkers with hemoglobin immunoassay. Quantitative values of individual biomarkers are not [...] screened with both Cologuard and colonoscopy. (Lakhwinder Perera et al, N Engl J Med 2014;370(14):9481-8943.) Cologuard may produce a false negative or false positive result (no colorectal cancer or precancerous polyp present at colonoscopy follow up). A negative Cologuard test result does not guarantee the absence of CRC or advanced adenoma (pre-cancer). The current Cologuard screening interval is every 3 years. ([place] [employer] Society and U.S. Multi-Society Task Force). Cologuard performance data in a 10,000 patient pivotal study using colonoscopy as the reference method can be accessed at the following location: www.Digerati/results. Additional description of the Cologuard test process, warnings and precautions can be found at www.LemonStand.rd.com. STOOL STOOL SPECIMEN / Unknown 01/27/2023 8:35 AM CDT 01/28/2023 5:11 PM CDT Lluvia HEARD BODY FLUIDS AND STOOLS ORDER LORI Final Result [facility] [place] [address] [place] [address], [facility] (CLIA #:[id number]) [address] [place] [address] from Last 3 Months or Most Recently Relevant to Health Maintenance Insurance [place] [address] [employer] Care Teams Ripening Room Hand Relationship Specialty [place] [address] [address] [place] [address] PCP - General INTERNAL MEDICINE 02/26/25
== END 2025-03-31 17:11 | disposition home or self-care (01) ==
PROVIDERS: PCP Nurse Practitioner Family; Visit Provider Orthopaedic Surgery
DX: Z96.651 Presence of right artificial knee joint (principal); M85.861 Other specified disorders of bone density and structure, right lower leg
CPT/HCPCS: 73562